=== PATIENT | male | born 1945 ===

== ENCOUNTER 2024-04-13 05:06 | Observation (INO) ==
--- NOTE | 2024-03-07 15:58 | PAT Medication Instructions ---
Medication Instructions Date of Service March 07, 2024 Home Medications aspirin 81 mg tablet,delayed release 81 mg PO QAM atorvastatin 10 mg tablet 10 mg PO HS diclofenac sodium 75 mg tablet,delayed release 75 mg PO BID hydrochlorothiazide 12.5 mg tablet 12.5 mg PO QAM losartan 100 mg tablet 100 mg PO QAM montelukast 10 mg tablet 10 mg PO PM multivitamin with minerals-folic acid 80 mcg chewable tablet (Centrum Adult 50 Plus) 1 tab PO QAM tamsulosin 0.4 mg capsule 0.4 mg PO QAM MEDICATION INSTRUCTIONS: ASK your surgeon for instructions diclofenac sodium 75 mg tablet,delayed release 75 mg PO BID ASK your prescriber and surgeon aspirin 81 mg tablet,delayed release 81 mg PO QAM DO NOT take the morning of surgery hydrochlorothiazide 12.5 mg tablet 12.5 mg PO QAM losartan 100 mg tablet 100 mg PO QAM multivitamin with minerals-folic acid 80 mcg chewable tablet (Centrum Adult 50 Plus) 1 tab PO QAM Take morning of surgery With a small sip of water, OTHERWISE NOTHING TO EAT OR DRINK AFTER MIDNIGHT: tamsulosin 0.4 mg capsule 0.4 mg PO QAM Take evening before surgery montelukast 10 mg tablet 10 mg PO PM atorvastatin 10 mg tablet 10 mg PO HS Other Notes If you have any questions please call us at [phone] or [phone] or [phone] or [phone]
--- NOTE | 2024-03-16 08:42 | Anesthesiology Consultation ---
Date of Service March 16, 2024 Assessment & Plan (1) Encounter for pre-operative examination: - Infectious disease screening: Per assessment on 03/16/24: No known recent infectious disease contacts or current infectious disease symptoms. - Outpatient joint assessment: Pt currently scheduled for inpatient pathway. If surgeon requests review for outpatient joint pathway, patient is not recommended candidate for outpatient joint program from anesthesia standpoint based on available information. - PCP visit (12/14/23): Continue current meds. BP stable. Referred to orthopedic surgery for hip pain/osteoarthritis. Impaired fasting glucose- diet changes recommended. - Preop EKG: Notes SB at 46bpm + cannot r/o anterior infarct. Note written to PCP regarding upcoming surgery/preop EKG- Awaiting response (Casey Jasso PAC). Patient otherwise acceptable risk for surgery. Chart Review Chart Review: Acceptable Risk for Surgery and Patient seen in Pre Admission Testing Teaching & Discussion Pre-Anesthesia Teaching/Discussion Notes: Instructed NPO after midnight before surgery,except medications with 15 cc of water. Medication instructions provided according to the PAT guidelines. History Surgery Operation Date: 04/13/24 10:40 Proposed Procedures p Right Anterior Total Hip Arthroplasty - Erik Garcia, DO Height/Weight Height: 5 ft 8.5 in Weight: 99 kg Allergies Allergy/AdvReac Type Severity Reaction Status Date / Time hydrocodone AdvReac Intermediate Gastrointestinal Verified 03/02/24 07:34 Upset Medications Home Medications Medication Instructions Recorded Confirmed Last Taken aspirin 81 mg tablet,delayed 81 mg PO QAM 03/02/24 03/02/24 Unknown release atorvastatin 10 mg tablet 10 mg PO HS 03/02/24 03/02/24 Unknown diclofenac sodium 75 mg 75 mg PO BID 03/02/24 03/02/24 Unknown tablet,delayed release hydrochlorothiazide 12.5 mg tablet 12.5 mg PO QAM 03/02/24 03/02/24 Unknown losartan 100 mg tablet 100 mg PO QAM 03/02/24 03/02/24 Unknown montelukast 10 mg tablet 10 mg PO PM 03/02/24 03/02/24 Unknown multivitamin with minerals-folic 1 tab PO QAM 03/02/24 03/02/24 Unknown acid 80 mcg chewable tablet (Centrum Adult 50 Plus) tamsulosin 0.4 mg capsule 0.4 mg PO QAM 03/02/24 03/02/24 Unknown Past Medical History Medical History Arthritis BPH (benign prostatic hyperplasia) CAD (coronary artery disease) stents x2 (2005) Hx of hepatitis Unsure of type, 1970s Hyperlipidemia Hypertension Exercise / Class Metabolic Activity III < 4 Walking/Shop/Light housework Past Surgical History Surgical History History of appendectomy History of cardiac cath 2005 History of carpal tunnel release R/L History of cataract surgery R/L History of colonoscopy History of heart artery stent x2 (2005) History of tonsillectomy History of tooth extraction History of total knee replacement R/L Past Anesthesia History No Hx of Anesthesia Complications and No Family Hx of Anesthesia Complications History of PONV No Hx of PONV and No Hx of Motion Sickness Social History Smoking Status: Former smoker Do You Dip or Chew Tobacco: No Smoking End Date: Quit 30 years ago Hx Alcohol Use: No Hx Substance Use: No substance use type: does not use Review of Systems Patient denies chest pain, shortness of breath, fever, chills, cough, wheezing, palpitations. Physical Exam Vital Signs BP 134/67 P 54 TEMP 97.8 SP02 96%RA RESP 18 Physical Mildly decreased cervical extension range of motion. Full TMJ range of motion. TMD 3 finger breaths Mallampati Score 3 Dentition: upper/lower full dentures Lungs: clear throughout to auscultation Cardiac: regular rate and rhythm, distant heart sounds Spine: normal Carotid arteries: negative bruit Extremities: no LE edema Lab Results Anesthesia Preop Results Results Anesthesia Widget: WBC 8.53 K/ul (4.8-10.8) 03/16/24 Hgb 12.6 g/dl (14.0-18.0) L 03/16/24 Hct 38.9 % (42.0-52.0) L 03/16/24 Plt 202 K/uL (130-400) 03/16/24 Na 137 mmol/L (136-145) 03/16/24 K 4.3 mmol/L (3.5-5.1) 03/16/24 Cl 105 mmol/L (98-107) 03/16/24 CO2 29 mmol/L (21-32) 03/16/24 BUN 21 mg/dl (6-23) 03/16/24 Creat 1.07 mg/dl (0.6-1.4) 03/16/24 Glucose Level 104 mg/dl (70-99(Fasting)) H 03/16/24 PT 10.3 Seconds (9.0-12.0) 03/16/24 PTT 29 Seconds (21-31) 03/16/24 INR 0.9 (0.9-1.1) 03/16/24 Blood Type O Positive 03/16/24 Antibody Screen NEGATIVE 03/16/24 Testing Electrocardiogram Date: 03/16/24 SB at 46bpm. Cannot r/o anterior infarct, age undetermined. Chest X-Ray Date: 03/16/24 FINDINGS: No lines and tubes are seen. Cardiomegaly is noted. The aortic arch is calcified. The lungs are clear. No evidence of pleural effusion or pneumothorax. IMPRESSION: No acute chest disease. Echocardiogram Date: 11/08/22 EF 60-65%. No RWMA. Severe LAD. No pericardial effusion. Grade I DD. No LVH. Physiologic TR.
--- NOTE | 2024-04-12 11:41 | History & Physical Report ---
Date of Service April 12, 2024 Assessment & Plan (1) Arthritis of right hip: We will proceed with a right anterior total of arthroplasty. Postoperatively he will be started on aspirin for DVT prophylaxis and kept overnight in the hospital for postop medical management. He will have the hospital set up home h ealth before discharge. History of Present Illness Chief Complaint: Osteoarthritis of the right hip. Primary Care Provider: NO PCP Seven is a pleasant 78-year-old male who has been dealing with chronic increasing right hip and groin pain. He is seeing another provider. X-rays and clinical examination have been diagnostic for advanced arthritis of the right hip. He has trouble getting in and out of a car. He has trouble walking long distances. After failed conservative treatment, he has elected proceed with a right anterior total of arthroplasty. Allergies Allergy/AdvReac Type Severity Reaction Status Date / Time hydrocodone AdvReac Intermediate Gastrointestinal Verified 03/02/24 07:34 Upset Home Medications Medication Instructions Recorded Confirmed Type aspirin 81 mg tablet,delayed 81 mg PO QAM 03/02/24 03/02/24 History release atorvastatin 10 mg tablet 10 mg PO HS 03/02/24 03/02/24 History diclofenac sodium 75 mg 75 mg PO BID 03/02/24 03/02/24 History tablet,delayed release hydrochlorothiazide 12.5 mg tablet 12.5 mg PO QAM 03/02/24 03/02/24 History losartan 100 mg tablet 100 mg PO QAM 03/02/24 03/02/24 History montelukast 10 mg tablet 10 mg PO PM 03/02/24 03/02/24 History multivitamin with minerals-folic 1 tab PO QAM 03/02/24 03/02/24 History acid 80 mcg chewable tablet (Centrum Adult 50 Plus) tamsulosin 0.4 mg capsule 0.4 mg PO QAM 03/02/24 03/02/24 History Past Med/Surg History Problem List Encounter for pre-operative examination Arthritis of right hip Medical History CAD (coronary artery disease) stents x2 (2005) Hx of hepatitis Unsure of type, 1970s BPH (benign prostatic hyperplasia) Hyperlipidemia Hypertension Arthritis Surgical History History of carpal tunnel release R/L History of total knee replacement R/L History of colonoscopy History of appendectomy History of tooth extraction History of tonsillectomy History of cataract surgery R/L History of heart artery stent x2 (2005) History of cardiac cath 2006 Social History Smoking Status: Former smoker Smoking End Date: Quit 30 years ago; Second Hand Exposure: No; Do You Dip or Chew Tobacco: No; Tobacco Cessation Education Requested by Patient: No Hx Alcohol Use: No Hx Substance Use: No Preferred Language: Belarusian Communication Ability: Effective Boot Maker Required: No Beliefs That Will Affect Care: None Current Living Situation: Spouse Other Information That Helps Us Care for You: No Feels Safe at Home: Yes Safety Concerns: Feels Safe At This Time Assistive Devices: Cane, Denture - Upper, Denture - Lower and Glasses Review of Systems All systems reviewed & are unremarkable except as noted in HPI & below. Physical Exam On physical examination the right hip, he has decreased range of motion. He has pain with forced internal/external rotation. Most of his pain is located in the groin.. Constitutional WD/WN, vitals as above Eyes PERRL, conjunctivae normal, anicteric sclerae ENMT external ear and nose normal, oropharynx normal Neck trachea midline, no thyromegaly Respiratory normal respiratory effort Cardiovascular RRR, no murmur, no edema Gastrointestinal (Abdomen) normal bowel sounds, soft, nontender, no hepatosplenomegaly Psychiatric A+Ox3, euthymic affect Results & Data Results & Data Laboratory Results . Diagnostic Findings X-rays of the right hip and pelvis show advanced osteoarthritis with joint space narrowing, osteophyte formation, and [id number] tubulation. PG Care Time/CCT Total # of Minutes Spent Total Time Spent with Patient: Total time spent is greater than 50% in coordination of care (as documented) at patient's floor/unit and/or counseling patient: Coding Level of Care Code None Diagnoses Arthritis of right hip M16.11
[2024-04-13] MEDS: LR 500ML BOLUS, THEN 15ML/HR IV SCH (05:55)
[2024-04-13] MEDS: LR 60ML/HR IV SCH (05:58)
[2024-04-13] MEDS: FAMOTIDINE 20 MG TAB PO SCH (06:02)
[2024-04-13] MEDS: ACETAMINOPHEN 500 MG TAB PO SCH ×2 (06:02→15:10)
[2024-04-13] MEDS: GABAPENTIN 300 MG CAP PO SCH (06:02)
[2024-04-13] MEDS: dexAMETHasone**PF** 10 MG/ML VIAL IV SCH (06:02)
[2024-04-13] MEDS ORDERED: BUPIVACAINE 0.5 % 5 MG/1 ML PF 10ML VIAL ONE (06:16)
--- OUTSIDE RECORDS SUMMARY | 2024-04-13 06:19 | External Medical Summary | Continuity of Care Document ---
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 Name Role Phone Cardiology - Cardiovascular Disease Care Team In formation Credit Associate Unavailable Problems Active Problems Provider Date Morbid obesity Casey Jasso PA-C Onset: 0 03/30/2019 Body mass index 30+ - obesity Casey Jasso PA-C Onset: 03/30/2019 Essential hypertension Casey Jasso PA-C O nset: 06/10/2017 Mixed hyperlipidemia Casey Jasso PA-C Ons et: 06/10/2017 Obesity Casey Jasso PA-C Onset: 0 06/10/2017 Localized, primary osteoarthritis Casey gtz PA-C Onset: 06/10/2017 Impaired fasting glycemia CASTILLO Velazquez Onset: 01/02/2018 Acquired trigger finger Casey Jasso PA-C Onset: 01/02/2018 Adult health examination Casey Jasso PA-C Onset: 04/03/2018 Dermatophytosis Casey Jasso PA-C Onset: 0 04/03/2018 Atopic dermatitis Casey Jasso PA-C Onset: 07/04/2018 Syncope Onset: 9 Note: Document: 10/09/18 - e [facility] Discharge Summary Sprain of medial collateral ligament of knee Casey Jasso PA-C Onset: 10/12/2018 Dermatophytosis of the body Johnie Velazquez Onset: 05/15/2019 Cellulitis of forearm Casey Jasso PA-C On set: 05/15/2019 Acute maxillary sinusitis CASTILLO Velazquez Onset: 06/08/2019 Acute bronchitis Casey Jasso PA-C Onset: 06/28/2019 Candidiasis of mouth Casey Jasso PA-C Ons et: 07/10/2019 Headache Casey Jasso PA-C Onset: 1 10/14/2018 Dyspnea Casey Jasso PA-C Onset: 0 10/08/2019 Carotid artery occlusion Casey Jasso PA-C Onset: 10/08/2019 Osteoarthritis of multiple joints Casey gtz PA-C Onset: 10/08/2019 Tinea corporis Casey Jasso PA-C Onset: 0 03/25/2020 Social History Type Date Description Comments Sex Male Cigarette Use 12/14/2023 Quit - Age 38 Tobacco Use Reviewed: 12/14/23 Never Smoked Cigars Tobacco Use Reviewed: 12/14/23 Never Smoked A Pipe Smoking Status Reviewed: 04/03/24 Never Smoked A Pipe Smokeless Tobacco 12/14/2023 Never Used Smokeless To bacco ETOH Use Occasionally consumes alcoho l Recreational Drug Use Denies Drug Use Allergies and adverse reactions Active Allergies Criticality Reaction | Severity Comments Date Acetaminophen / Hydrocodone Unable to assess criticality 06/10/2017 Medications Active Medications SIG Qnty Indications Order ing Provider Date Zdjnet4mt TBPK use as directed 21units Chaim Fernandez MD 04/03/2024 - 04/10/2024 Gpivibas133731Efkd/GM Cream apply topically to affected area 2 times a day. 90gm Shirley Arthur MD 04/03/2024 Btzfejdmomd001kg Tablets One daily x 7 days 7tabs Shirley Arthur MD 04/03/2024 Ondansetron HCL4mg Tablets take 1 tablet by mouth every 6 hours as needed for nausea 30tabs Shirley Arthur MD 03/20/2024 Tramadol CEY65mx Tablets 1 by mouth three times a day as needed pain 60tabs Shirley Arthur MD 11/25/2023 Montelukast Sdpjmv73hb Tablets take 1 tablet by mouth every night 90tabs Shirley Arthur MD 02/03/2023 Tamsulosin HCL0.4mg Capsules 1 by mouth every day 90caps Shirley Arthur MD 08/12/[address] Take 1 Tablet Twice A Day as Needed For Joint Pain 180tabs M15.9 Shirley Arthur MD 10/09/2020 Cetirizine NOA46yi Tablets 1 by mouth every day as needed 90tabs Shirley Arthur MD 10/09/2020 Losartan Jhwuumofw058rx Tablets Take 1 Tablet Daily 90tabs I10 Shirley Arthur MD 10/22/2019 Rykypdbmqwrpvlwuwyw55.5mg Tablets Take 1 Tablet Daily 90tabs I10 Shirley Arthur MD 10/22/2019 Terazosin GKL76ej Capsules once daily N40.1 Kt Arrieta JR, MD 02/08/2019 Atorvastatin Tsfnvsx33gy Tablets Take 1 Tablet Daily 90tabs Shirley Arthur MD [facility] [place] MultigummiesChewtabs John Cunningham MD Luis Daniel Low Wbth74vx Tablets DR 1 by mouth every day John Cunningham MD History Medications Kdiyi940jo Tablets 1 by mouth twice a day x 7 days 14tabs Shirley Arthur MD 03/20/2024 - 03/27/2024 Drdissxitw33jl Tablets Take Two Tablets By Mouth For 5 Days Then Take One Tablet By Mouth For 5 Days 15tabs Shirley Arthur MD 11/14/2023 - 03/20/2024 Medications Administered in Office Medication SIG Qnty Indications Ordering Provider Date Injection Kenalog 10 MG NDC [id number] Johnie Velazquez-Kishor 11/14/2023 Injection Kenalog 10 MG NDC [id number] Johnie Velazquez-Kishor 09/26/2023 Injection Dexamethasone Sodium Phosphate, 1 MGInjection Casey Jasso PA-C 09/12 Injection Dexamethasone Sodium Phosphate, 1 MGInjection Casey Jasso PA-C 01/2023 Injection Dexamethasone Sodium Phosphate, 1 MGInjection Casey D. Lazorka, PA-C 03/2023 Injection Kenalog 10 MG NDC [id number] Caseymax Jasso, P A-C 02/03/2023 Injection Dexamethasone Sodium Phosphate, 1 MGInjection Casey D. Lazorka, PA-C 01/11 Injection Dexamethasone Sodium Phosphate, 1 MGInjection Casey Faust Lazorka, PA-C 12/12 Injection Dexamethasone Sodium Phosphate, 1 MGInjection Casey Govind Lazorka, PA-C 02/2023 Injection Dexamethasone Sodium Phosphate, 1 MGInjection Casey D. Lazorka, PA-C 11/10 Injection Dexamethasone Sodium Phosphate, 1 MGInjection Casey Faust Lazorka, PA-C 04/2022 Injection Kenalog 10 MG NDC [id number] Casey Jasso, P A-C 05/14/2021 Immunizations CPT Code Status Date Vaccine Lot # [id number] Given 06/09/2023 Influenza Vaccine High Do se 0.5ML Age 65 & > [id number] Given 06/09/2023 Tdap (Tetanus, diphtheria & acel. pertussis) Adacel or Boostrix [id number] 85814 Given 08/24/2022 Moderna Sars-Co v-2 (Covid-19) Vaccine, BiValent Booster 12y+ [id number] 18329 Given 01/05/2022 Moderna Covid-1 9 Vaccine 50mcg Booster-EMR Doc Only [id number] Given 08/25/2021 Influenza Vaccine High Do se 0.5ML Age 65 & > [id number] Given 07/14/2021 Moderna Covid-1 9 Vaccine 50mcg Booster-EMR Doc Only [id number] 24609 Given 11/14/2020 Moderna Sars-Co v-2 (Cov-19) vacc,100 mcg/ 0.5 mL 12Y+EMR Doc Only [id number] 07685 Given 10/17/2020 Moderna Sars-Co v-2 (Cov-19) vacc,100 mcg/ 0.5 mL 12Y+EMR Doc Only [id number] 69598 Given 06/09/2020 Influenza Vaccine High Do se 0.5ML Age 65 & > [id number] 52760 Given 10/08/2019 Pneumococcal Vaccine/Pneu movax 23 [id number] 81033 Given 06/20/2018 Influenza Virus Vaccine, Quadrivalent (Cciiv4), Derived From Cell U-FLU Given 06/20/2018 Influenza,Unspecified 32930 Given 04/03/2018 Pneumococcal Conjugate-Pr evnar 13 [id number] 08364 Given 09/03/2015 Pneumococcal Conjugate-Pr evnar 13 83258 Given 08/06/2015 Tdap (Tetanus, diphtheria & acel. pertussis) Adacel or Boostrix U-FLU Given 06/10/2015 Influenza,Unspecified U-FLU Given 05/30/2014 Influenza,Unspecified U-FLU Given 08/22/2010 Influenza,Unspecified 03806 Refused 05/24/2022 Shingrix 51155 Refused 06/09/2020 Shingrix 42828 Refused 10/08/2019 Influenza Virus Vaccine, Quadrivalent, Im Use [id number] Refused 11/07/2018 Shingrix Vital Signs Date Vital Result Comment 04/03/2024 11:01am BP Systolic 130 mmHg BP Diastolic 78 mmHg Body Temperature 97.7 F Heart Rate 40 /min Respiratory Rate 20 /min Weight 217.38 lb Weight 98.601 kg Height 68.5 inches 5'8.50" BMI (Body Mass Index) 32.6 kg/m2 O2 % BldC Oximetry 98 % [place] Body Weight 154 lb 03/20/2024 11:07am BP Systolic 134 mmHg large cuf f BP Diastolic 64 mmHg large cuff Body Temperature 97.6 F Heart Rate 59 /min Weight 219.38 lb Weight 99.508 kg O2 % BldC Oximetry 95 % Procedures Date Code Description Status 03/20/2024 G2211 Continuation of care e/m vis it add on Completed 12/27/2023 14215 Therapeutic Procedure Group Completed 12/27/2023 56520 Manual Balance Wheel Hand Filer 1/> Area 15 Min Each Region Completed 12/27/2023 36717 Therapy Proc, Neuromuscular Reeducation Of Movement Completed 12/27/2023 59609 Therapy Proc 1/> Area 15Min Ea Completed 12/22/2023 84004 Manual Balance Wheel Hand Filer 1/> Area 15 Min Each Region Completed 12/22/2023 04110 Therapy Proc, Neuromuscular Reeducation Of Movement Completed 12/22/2023 43201 Therapy Proc 1/> Area 15Min Ea Completed 12/20/2023 49128 Therapy Proc, Neuromuscular Reeducation Of Movement Completed 12/20/2023 89036 Therapy Proc 1/> Area 15Min Ea Completed 12/20/2023 44402 Manual Balance Wheel Hand Filer 1/> Area 15 Min Each Region Completed 12/20/2023 79016 Therapeutic Procedure Group Completed 12/14/2023 3078F PVRP Diastolic BP <80 mmHg C ompleted 12/14/2023 3074F PVRP Systolic BP <130 mmHg C ompleted 12/14/2023 1101F PT SCR Future Fall Risk, No Fall Or 1 W/Out Injury Completed 12/13/2023 83746 Therapeutic Procedure Group Completed 12/13/2023 80295 Manual Balance Wheel Hand Filer 1/> Area 15 Min Each Region Completed 12/13/2023 22202 Therapy Proc, Neuromuscular Reeducation Of Movement Completed 12/13/2023 87051 Therapy Proc 1/> Area 15Min Ea Completed 12/06/2023 37920 Therapeutic Procedure Group Completed 12/06/2023 17889 Therapy Proc 1/> Area 15Min Ea Completed 12/06/2023 15225 Manual Balance Wheel Hand Filer 1/> Area 15 Min Each Region Completed 12/06/2023 06970 Therapy Proc, Neuromuscular Reeducation Of Movement Completed 11/29/2023 82502 Manual Balance Wheel Hand Filer 1/> Area 15 Min Each Region Completed 11/29/2023 52614 Therapy Proc, Neuromuscular Reeducation Of Movement Completed 11/29/2023 39476 Therapy Proc 1/> Area 15Min Ea Completed 11/24/2023 16781 Manual Balance Wheel Hand Filer 1/> Area 15 Min Each Region Completed 11/24/2023 96902 Therapy Proc, Neuromuscular Reeducation Of Movement Completed 11/24/2023 51120 Therapy Proc 1/> Area 15Min Ea Completed 11/22/2023 16894 Physical Therapy Evaluation Low Complexity Completed 11/22/2023 21656 Therapy Proc 1/> Area 15Min Ea Completed 11/22/2023 67524 Manual Balance Wheel Hand Filer 1/> Area 15 Min Each Region Completed 11/14/2023 J3301 Injection Kenalog 10 MG NDC [id number] Completed 11/14/2023 37737 Inject/Drain Arthrocentesis Major Joint/Bursa Completed 10/11/2023 3078F PVRP Diastolic BP <80 mmHg C ompleted 10/11/2023 3074F PVRP Systolic BP <130 mmHg C ompleted 10/11/2023 1101F PT SCR Future Fall Risk, No Fall Or 1 W/Out Injury Completed 03/20/2014 [id number] Colonoscopy Completed Medical Devices Description No Information Available Encounters Type Date Location Provider Dx Diagnosis Office Visit 04/03/2024 11:00a Talia Jasso PA-C Z01.818 Encounter for other preprocedural examination Office Visit 03/20/2024 11:15a Talia Jasso PA-C K52.839 Microscopic colitis, unspecified E86.0 Dehydration Office Visit 12/14/2023 11:15a Talia Jasso PA-C Z00.01 Encounter for general adult medical exam w abnormal findings I10 Essential (primary) hypertension E78.2 Mixed hyperlipidemia M16.11 Unilateral primary o steoarthritis, right hip R73.01 Impaired fasting glu cose Office Visit 11/14/2023 10:00a Talia Jasso PA-C M16.11 Unilateral primary osteoarthritis, right hip M70.61 Trochanteric bursiti s, right hip Office Visit 10/11/2023 9:00a Talia cornell PA-C Z00.01 Encounter for general adult medical exam w abnormal findings I10 Essential (primary) hypertension E78.2 Mixed hyperlipidemia R73.01 Impaired fasting glu cose N40.1 Benign prostatic hyp erplasia with lower urinary tract symp Z68.32 Body mass index [BMI ] 32.0-32.9, adult Assessments Date Code Description Provider 04/03/2024 Z01.818 Encounter for ot her preprocedural examination Casey Jasso PA-C 03/20/2024 K52.839 Microscopic colitis, unspeci fied Casey Jasso PA-C 03/20/2024 E86.0 Dehydration Casey reina PA-C 12/27/2023 M25.551 Pain in right hip Gaivn Arnett, DPT 12/27/2023 M54.50 Low back pain, unspecified A lexander Snyder, DPT 12/22/2023 M25.551 Pain in right hip Gavin Snyder, DPT 12/22/2023 M54.50 Low back pain, unspecified A lexander Snyder, DPT 12/20/2023 M25.551 Pain in right hip Gavin Snyder, DPT 12/20/2023 M54.50 Low back pain, unspecified A lexander Snyder, DPT 12/14/2023 Z00.01 Encounter for [facility] adult medical examination with abnormal findings Casey Jasso PA-C 12/14/2023 I10 Essential (primary) hyperten adam Casey Jasso PA-C 12/14/2023 E78.2 Mixed hyperlipidemia Casey Jasso PA-C 12/14/2023 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, right hip Casey Jasso PA-C 12/14/2023 R73.01 Impaired fasting glucose CASTILLO PughC 12/13/2023 M25.551 Pain in right hip Gavin Snyder, DPT 12/13/2023 M54.50 Low back pain, unspecified A lexander Snyder, DPT 12/06/2023 M25.551 Pain in right hip Gavin Snyder, DPT 12/06/2023 M54.50 Low back pain, unspecified A lexander Snyder, DPT 11/29/2023 M25.551 Pain in right hip Gavin Snyder, DPT 11/29/2023 M54.50 Low back pain, unspecified A lexander Snyder, DPT 11/24/2023 M25.551 Pain in right hip Gavin Snyder, DPT 11/24/2023 M54.50 Low back pain, unspecified A lexander Snyder, DPT 11/22/2023 M25.551 Pain in right hip Gavin Snyder, DPT 11/22/2023 M54.50 Low back pain, unspecified A lexander Snyder, DPT 11/14/2023 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, right hip Casey Jasso PA-C 11/14/2023 M70.61 Trochanteric bursitis, right hip Casey Jasso PA-C 10/11/2023 Z00.01 [facility] for [facility] [place] [facility] with abnormal findings Casey Jasso PA-C 10/11/2023 I10 Essential (primary) hyperten adam Casey Jasso PA-C 10/11/2023 E78.2 Mixed hyperlipidemia Casey Jasso PA-C 10/11/2023 R73.01 Impaired fasting glucose Vipul Jasso PA-C 10/11/2023 N40.1 Benign prostatic hyperplasia with lower urinary tract symptoms Casey Jasso PA-C 10/11/2023 Z68.32 Body mass index [BMI] 32.0-3 2.9, adult Casey Jasso PA-C Plan of Treatment Future Appointment(s):* 04/10/2024 8:00 am - [facility] - [facility] * 04/17/2024 9:00 am - Casey Jasso PA-C at [facility] 04/03/2024 - Casey Jasso PA-C* Z01.818 Encounter for other preprocedural examination* Comments:* Patient is aware to hold all NSAIDs and other medications as they advised prior to surgery Labresults reviewed and chest x- ray reviewed EKG repeated today showing 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 * Follow up:* Follow-up as scheduled Please fax today's office note to Dr. Garcia clearing patient for surgery and fax EKG that we completed here in our office today Functional Status Description No Information Available Mental Status Description No Information Available Referrals Refer to Dr Reason for Referral Status Appt [facility] Patient Declined Gavin Arnett, SUKHDEV [phone] [place] [phone]
--- OUTSIDE RECORDS SUMMARY | 2024-04-13 06:19 | External Medical Summary | Continuity of Care Document ---
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 Unavailable Problems Active Problems Provider Date Morbid [...] Onset: 9 Note: Document: 10/09/18 - e [facility] Discharge Summary Sprain of medial collateral ligament of knee Casey Jasso PA-C Onset: 10/12/2018 Dermatophytosis of the body Johnie Velazquez Onset: 05/15/2019 Cellulitis of forearm CASTILLO VelazqeuzC On set: 05/15/2019 Acute maxillary sinusitis CASTILLO [...] Social History Type Date Description Comments Sex Unknown Cigarette Use 12/14/2023 Quit - Age 38 Tobacco Use Reviewed: 12/14/23 Never Smoked Cigars Tobacco Use Reviewed: 12/14/23 Never Smoked A Pipe Smoking Status Reviewed: 03/20/24 Never Smoked A Pipe Smokeless Tobacco 12/14/2023 Never Used Smokeless To bacco ETOH Use Occasionally consumes alcoho l Recreational Drug Use Denies Drug Use Allergies and adverse reactions Active Allergies Criticality Reaction | Severity Comments Date Acetaminophen / Hydrocodone Unable to assess criticality 06/10/2017 Medications Active Medications SIG Qnty Indications Order ing Provider Date Gtsst259rg Tablets 1 by mouth twice a day x 7 days 14tabs Shirley Arthur MD 03/20/2024 - 03/27/2024 Ondansetron HCL4mg Tablets take 1 tablet by mouth every 6 hours as needed for nausea 30tabs Shirley Arthur MD 03/20/2024 Tramadol CHI77by Tablets 1 by mouth three times a day as needed pain 60tabs Shirley Arthur MD 11/25/2023 Montelukast Ntxzrp90qg Tablets take 1 tablet by mouth every night 90tabs Shirley Arthur MD 02/03/2023 Tamsulosin HCL0.4mg Capsules 1 by mouth every day 90caps Shirley Arthur MD 08/12/2022 Bvzbodiaqzl078fu Capsules take 1 capsule 4 times daily as needed for cough 60caps Shirley Arthur MD 10/20/2021 Cetirizine XPB44th Tablets 1 by mouth every day as needed 90tabs Shirley Arthur MD 10/09/[address] Take 1 Tablet Twice A Day as Needed For Joint Pain 180tabs M15.9 Shirley Arthur MD 10/09/2020 Qcbakdekbocivtsiwxh62.5mg Tablets Take 1 Tablet Daily 90tabs I10 Shirley Arthur MD 10/22/2019 Losartan Svbiommzd368xz Tablets Take 1 Tablet Daily 90tabs I10 Shirley Arthur MD 10/22/2019 Vitamin C W/Vitamin V269-253gp-Eeff Capsules 1 by mouth every day Kt Arrieta JR, MD 07/10/2019 Terazosin TPP86hd Capsules once daily N40.1 Kt Arrieta JR, MD 02/08/2019 Ashatddek50wd Tablets take 1 tablet every day with food 90tabs M17.0 Alex Macedo MD 11/07/2018 Fish Oil Dioceweomyx6302pr Capsules 1 by mouth every day 30caps John Cunningham MD 06/10/2017 Atorvastatin Inleuqg02nt Tablets Take 1 Tablet Daily 90tabs Shirley Arthur MD Centrum MultigummiesChewtabs John Cunningham MD Fiber Select GummiesChewtabs 1 gummies daily with glass of water John Cunningham MD Luis Daniel Low Pimf82mx Tablets DR 1 by mouth every day John Cunningham MD History Medications Slhbfkvjdk00ya Tablets Take Two Tablets By Mouth For 5 Days Then Take One Tablet By Mouth For 5 Days 15tabs Shirley Arthur MD 11/14/2023 - 03/20/2024 Medications Administered in Office Medication SIG Qnty Indications Ordering Provider Date Injection Kenalog 10 MG NDC [id number] Johnie Velazquez A-C 11/14/2023 Injection Kenalog 10 MG NDC [id number] Johnie Velazquez A-C 09/26/2023 Injection Dexamethasone Sodium Phosphate, 1 MGInjection Casey Jasso, PA-C 09/12 Injection Dexamethasone Sodium Phosphate, 1 MGInjection Casey D. Lazorka, PA-C 01/2023 Injection Dexamethasone Sodium Phosphate, 1 MGInjection Casey D. Lazorka, PA-C 03/2023 Injection Kenalog 10 MG ND [id number] Casey D. Lazjaia, P A-C 02/03/2023 Injection Dexamethasone Sodium Phosphate, 1 MGInjection Casey D. Lazorka, PA-C 01/11 Injection Dexamethasone Sodium Phosphate, 1 MGInjection Casey D. Lazorka, PA-C 12/12 Injection Dexamethasone Sodium Phosphate, 1 MGInjection Casey D. Lazorka, PA-C 02/2023 Injection Dexamethasone Sodium Phosphate, 1 MGInjection Casey Becky. Lazorka, PA-C 11/10 Injection Dexamethasone Sodium Phosphate, 1 MGInjection Casey Becky. Lazorka, PA-C 04/2022 Injection Kenalog 10 MG [facility] [id number] Casey Becky. Lazjaia, P A-C 05/14/2021 Immunizations CPT Code Status Date Vaccine Lot # [id number] Given 06/09/2023 Influenza Vaccine High Do se 0.5ML Age 65 & > [id number] 08698 Given 06/09/2023 Tdap (Tetanus, diphtheria & acel. pertussis) Adacel or Boostrix [id number] Given 08/24/2022 Moderna Sars-Co v-2 (Covid-19) Vaccine, BiValent Booster 12y+ [id number] 35262 Given 01/05/2022 Moderna Covid-1 9 Vaccine 50mcg Booster-EMR Doc Only [id number] Given 08/25/2021 Influenza Vaccine High Do se 0.5ML Age 65 & > [id number] Given 07/14/2021 Moderna Covid-1 9 Vaccine 50mcg Booster-EMR Doc Only [id number] 46241 Given 11/14/2020 Moderna Sars-Co v-2 (Cov-19) vacc,100 mcg/ 0.5 mL 12Y+EMR Doc Only [id number] 48608 Given 10/17/2020 Moderna Sars-Co v-2 (Cov-19) vacc,100 mcg/ 0.5 mL 12Y+EMR Doc Only [id number] 51012 Given 06/09/2020 Influenza Vaccine High Do se 0.5ML Age 65 & > [id number] 47911 Given 10/08/2019 Pneumococcal Vaccine/Pneu movax 23 [id number] 36582 Given 06/20/2018 Influenza Virus Vaccine, Quadrivalent (Cciiv4), Derived From Cell U-FLU Given 06/20/2018 Influenza,Unspecified 32922 Given 04/03/2018 Pneumococcal Conjugate-Pr evnar 13 [id number] 45021 Given 09/03/2015 Pneumococcal Conjugate-Pr evnar 13 [id number] Given 08/06/2015 Tdap (Tetanus, diphtheria & acel. pertussis) Adacel or Boostrix U-FLU Given 06/10/2015 Influenza,Unspecified U-FLU Given 05/30/2014 Influenza,Unspecified U-FLU Given 08/22/2010 Influenza,Unspecified [id number] Refused 05/24/2022 Shingrix [id number] Refused 06/09/2020 Shingrix [id number] Refused 10/08/2019 Influenza Virus Vaccine, Quadrivalent, Im Use [id number] Refused 11/07/2018 Shingrix Vital Signs Date Vital Result Comment 03/20/2024 11:07am BP Systolic 134 mmHg large cuf f BP Diastolic 64 mmHg large cuff Body Temperature 97.6 F Heart Rate 59 /min Weight 219.38 lb Weight 99.508 kg O2 % BldC Oximetry 95 % 12/14/2023 10:38am BP Systolic 106 mmHg BP Diastolic 58 mmHg Body Temperature 97.6 F Heart Rate 59 /min Respiratory Rate 16 /min Weight 213.50 lb Weight 96.844 kg Height 68.5 inches 5'8.50" BMI (Body Mass Index) 32.0 kg/m2 O2 % BldC Oximetry 95 % [place] Body Weight 154 lb Results Test Acquired Date Facility Test Result H/L Range N ote CBC W/Diff 10/04/2023 [facility] [address] [place], [place] [id number] [phone] WBC 7.8 10^3/M3 3.1-9.2 RBC 4.26 10^6/M3 4.00-5.80 HGB 13.8 GR/DL 12.5-17.5 HCT 41.2 % 37.5-52.5 MCV 96.5 CUMICR High 82.6-95.8 MCH 32.4 PICOGR 27.9-32.9 MCHC 33.6 % 32.6-35.4 RDW 14.5 % 11.4-14.6 PLT 224 10^3/M3 140-350 MPV 8.4 CUMICR 7.0-10.6 %Neut 72.3 % 40.0-75.0 %Lymph 18.7 % 17.0-45.0 %Richardson 6.6 % 1.0-11.0 %Eos 1.9 % 0.0-6.0 %Baso 0.5 % 0.0-2.0 #Neut 5.6 10^3/M3 1.5-8.0 #Lymph 1.5 10^3/M3 0.8-3.2 #Richardson 0.5 10^3/M3 0.0-0.8 #Eos 0.1 10^3/m3 0.0-0.4 #Baso 0.0 10^3/m3 0.0-0.2 Comp. Met 10/04/2023 [facility] [address] [place] [address] [phone] Glucose 92 mg/dL 70-110 BUN 15 mg/dL 6-25 Creatinine 0.8 mg/dL 0.7-1.3 Sodium 142 mEq/L 135-145 Potassium 4.3 mEq/L 3.5-5.0 Chloride 102 mEq/L 95-107 Co-2 32 mEq/L High 24-31 Alk Phos 37 IU/L Low 43-122 Alt(SGPT) 18 IU/L 10-40 Ast(Sgot) 14 IU/L 3-42 T.Bilirubin 0.6 mg/dL 0.1-1.3 Calcium 8.9 mg/dL 8.5-10.6 Tot.Protein 5.7 g/dL Low 5.8-8.0 Albumin 3.7 g/dL 3.0-5.2 Globulin 2.0 g/dL 2.0-3.4 GFR 99 ML/MIN/1.73SQM >60 Lipid 10/04/2023 [facility] [address] [place] [address] [phone] Cholesterol 176 mg/dL 0-200 1 Triglyceride 102 mg/dL 0-150 2 HDLD 63 mg/dL See Comment 3 Measured LDL 99 mg/dL 0-130 4 Calc VLDL 20.4 mg/dL See Comment 5 Chol/HDL 2.8 RATIO See Comment 6 Non-HDL 113 mg/dL See Comment 7 Laboratory test finding 10/04/2023 [facility] [address] [place] [address] [phone] TSH 1.38 uIU/mL 0.50-6.00 Hba1c 10/04/2023 [facility] [address] [place] [address] [phone] A1c 6.70 % High 4.70-6.50 8 Laboratory test finding 10/04/2023 [facility] [address] [place], [place] [id number] [phone] Psa2 0.8 ng/mL 0.0-4.0 Urinalysis,Cult If Indicated 10/04/2023 [facility] [address] [place], [place] [id number] [phone] RFLX Culture NO Urinalysis 10/04/2023 [facility] [address] [place] [address] [phone] Color LIGHT-YELL OW Appearance CLEAR Clear Spec.Grav. 1.012 1.005-1.025 Leukocytes NEGATIVE Negative Nitrite NEGATIVE Negative PH 7.0 6.0-7.5 Protein NEGATIVE Negative Urine Glucose NEGATIVE Negative Ketone NEGATIVE Negative Urobilinogen NORMAL E.U./DL Normal Bilirubin NEGATIVE Negative Blood NEGATIVE Negative WBC-U 0-2 /HPF 0-5/HPF RBC-U NONE SEEN /HPF 0-5/HPF Bacteria TRACE None Seen Squamous 0-2 /HPF 0-5/HPF 1 CHOLESTEROL Less than 200mg/dl Low risk 201-239 mg/dl Borderline risk Equal to or greater 240mg/dl High risk 2 TRIGLYCERIDES Less than 150mg/dl Normal 150-199mg/dl Borderline 200-499mg/dl High Greater than 500mg/dl Very High 3 HDL <40mg/dl Elevated Risk 41-59mg/dl Risk >=60mg/dl Least Risk 4 LDL <100mg/dl Optimal 100-129mg/dl Near Optimal 130-159mg/dl Borderline High 160-189mg/dl High >=190 Very High 5 VLDL Less than 30mg/dl Normal 6 CHOL/HDL <4.0 Optimal 4.0-5.0 Borderline >6.0 High Risk 7 NON-HDL 30mg/dl higher than LDL Target 8 MEAN GLUCOSE IN mg/d L/A1c% POOR CONTROL FAIR CONTROL GOOD CONTROL EXCELLENT CONTROL 360-14 210-9 180-8 120-6 330-13 150-7 90-5 300-12 270-11 240-10 Procedures Date Code Description Status 12/27/2023 87420 Manual Emergency Services Dispatcher 1/> Area 15 Min Each Region Completed 12/27/2023 08510 Therapeutic Procedure Group Completed 12/27/2023 54183 Therapy Proc 1/> Area 15Min Ea Completed 12/27/2023 96926 Therapy Proc, Neuromuscular Reeducation Of Movement Completed 12/22/2023 55848 Manual Emergency Services Dispatcher 1/> Area 15 Min Each Region Completed 12/22/2023 52277 Therapy Proc, Neuromuscular Reeducation Of Movement Completed 12/22/2023 26717 Therapy Proc 1/> Area 15Min Ea Completed 12/20/2023 99579 Therapeutic Procedure Group Completed 12/20/2023 78219 Manual Emergency Services Dispatcher 1/> Area 15 Min Each Region Completed 12/20/2023 27165 Therapy Proc, Neuromuscular Reeducation Of Movement Completed 12/20/2023 56631 Therapy Proc 1/> Area 15Min Ea Completed 12/14/2023 3078F PVRP Diastolic BP <80 mmHg C ompleted 12/14/2023 1101F PT SCR Future Fall Risk, No Fall Or 1 W/Out Injury Completed 12/14/2023 3074F PVRP Systolic BP <130 mmHg C ompleted 12/13/2023 11056 Therapeutic Procedure Group Completed 12/13/2023 27621 Manual Emergency Services Dispatcher 1/> Area 15 Min Each Region Completed 12/13/2023 37994 Therapy Proc, Neuromuscular Reeducation Of Movement Completed 12/13/2023 82304 Therapy Proc 1/> Area 15Min Ea Completed 12/06/2023 48271 Therapy Proc 1/> Area 15Min Ea Completed 12/06/2023 92865 Therapy Proc, Neuromuscular Reeducation Of Movement Completed 12/06/2023 60148 Therapeutic Procedure Group Completed 12/06/2023 41840 Manual Emergency Services Dispatcher 1/> Area 15 Min Each Region Completed 11/29/2023 57713 Manual Emergency Services Dispatcher 1/> Area 15 Min Each Region Completed 11/29/2023 06300 Therapy Proc, Neuromuscular Reeducation Of Movement Completed 11/29/2023 22981 Therapy Proc 1/> Area 15Min Ea Completed 11/24/2023 00229 Manual Emergency Services Dispatcher 1/> Area 15 Min Each Region Completed 11/24/2023 41704 Therapy Proc, Neuromuscular Reeducation Of Movement Completed 11/24/2023 95444 Therapy Proc 1/> Area 15Min Ea Completed 11/22/2023 73827 Therapy Proc 1/> Area 15Min Ea Completed 11/22/2023 11202 Manual Emergency Services Dispatcher 1/> Area 15 Min Each Region Completed 11/22/2023 83234 Physical Therapy Evaluation Low Complexity Completed 11/14/2023 J3301 Injection Kenalog 10 MG [facility] [id number] Completed 11/14/2023 70151 Inject/Drain Arthrocentesis Major Joint/Bursa Completed 10/11/2023 3078F PVRP Diastolic BP <80 mmHg C ompleted 10/11/2023 3074F PVRP Systolic BP <130 mmHg C ompleted 10/11/2023 1101F PT SCR Future Fall Risk, No Fall Or 1 W/Out Injury Completed 10/04/2023 14360 Venipuncture Routine Complet ed 09/26/2023 J3301 Injection Kenalog 10 MG [facility] [id number] Completed 09/26/2023 J1100 Injection Dexamethasone Sodi um Phosphate, 1 MG Completed 09/26/2023 54983 Inj Subcutaneous Or Intramus cular Completed 03/20/2014 [id number] Colonoscopy Completed Medical Devices Description No Information Available Encounters Type Date Location Provider Dx Diagnosis Office Visit 03/20/2024 11:15a Talia Jasso PA-C [...] Body mass index [BMI ] 32.0-32.9, adult Office Visit 09/26/2023 12:45p Talia Jasso PA-C J20.9 Acute bronchitis, unspecified Assessments Date Code Description Provider 03/20/2024 K52.839 Microscopic colitis, unspeci fied Casey Jasso PA-C 03/20/2024 E86.0 Dehydration Casey reina PA-C 12/27/2023 M25.551 Pain in right hip Gavin Arnett, DPT 12/27/2023 M54.50 Low back pain, unspecified A lexander Olmsted, DPT 12/22/2023 M25.551 Pain in right hip Gavin Olmsted, DPT 12/22/2023 M54.50 Low back pain, unspecified A lexander Olmsted, DPT 12/20/2023 M25.551 Pain in right hip Gavin Talamantesn, DPT 12/20/2023 M54.50 Low back pain, unspecified A lexander Olmsted, DPT 12/14/[address] 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, right hip Casey Jasso PA-C 12/14/2023 R73.01 Impaired fasting glucose Vipul Jasso PA-C 12/13/2023 M25.551 Pain in right hip Gavin Olmsted, DPT 12/13/2023 M54.50 Low back pain, unspecified A lexander Olmsted, DPT 12/06/2023 M25.551 Pain in right hip Gavin Olmsted, DPT 12/06/2023 M54.50 Low back pain, unspecified A lexander Olmsted, DPT 11/29/2023 M25.551 Pain in right hip Gavin Olmsted, DPT 11/29/2023 M54.50 Low back pain, unspecified A lexander Olmsted, DPT 11/24/2023 M25.551 Pain in right hip Gavin Olmsted, DPT 11/24/2023 M54.50 Low back pain, unspecified A lexander Olmsted, DPT 11/22/2023 M25.551 Pain in right hip Gavin Olmsted, DPT 11/22/2023 M54.50 Low back pain, unspecified A lexander Olmsted, DPT 11/14/2023 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 adult medical examination with abnormal findings aCsey Jasso PA-C 10/11/2023 I10 Essential (primary) hyperten adam Casey Jasso PA-C 10/11/2023 E78.2 Mixed hyperlipidemia Casey Jasso PA-C 10/11/2023 R73.01 Impaired fasting glucose Vipul Jasso PA-C 10/11/2023 N40.1 Benign prostatic hyperplasia with lower urinary tract symptoms Casey Jasso PA-C 10/11/2023 Z68.32 Body mass index [BMI] 32.0-3 2.9, adult Casey Jasso PA-C 10/04/2023 I10 Essential (primary) hyperten adam Shirley Arthur MD 10/04/2023 I10 Essential (primary) hyperten adam Lab - [facility] 10/04/2023 E78.2 Mixed hyperlipidemia Shirley Arthur MD 10/04/2023 E78.2 Mixed hyperlipidemia Lab - [place] 10/04/2023 R73.01 Impaired fasting glucose Zack Arthur MD 10/04/2023 R73.01 Impaired fasting glucose Lab - [facility] 10/04/2023 N40.1 Benign prostatic hyperplasia with lower urinary tract symptoms Shirley Arthur MD 10/04/2023 N40.1 Benign prostatic hyperplasia with lower urinary tract symptoms Lab - [facility] 09/26/2023 J20.9 Acute bronchitis, unspecifie d Casey Jasso PA-C Plan of Treatment Future Appointment(s):* 04/10/2024 8:00 am - [facility] * 04/17/2024 9:00 am - Casey Jasso PA-C at [facility] 03/20/2024 - Casey Jasso PA-C* K52.839 Microscopic colitis, unspecified* Comments:* Complete Cipro Consider imaging if or stool sample if symptoms persist [place] diet * E86.0 Dehydration* Comments:* Increase fluid intake along with electrolyte supplementation * All* New Medication:* Ondansetron HCL 4 mg - take 1 tablet by mouth every 6 hours as needed for nausea * Cipro 250 mg - 1 by mouth twice a day x 7 days Functional Status Description No Information Available Mental Status Description No Information Available Referrals Refer to Reason for Referral Status [facility]t [facility] Patient Declined Gavin Arnett, DPT Created 000 [address] [facility] [place] [phone]
--- OUTSIDE RECORDS SUMMARY | 2024-04-13 06:19 | External Medical Summary | Continuity of Care Document ---
Author Name Unknown Organization Family Practice [facility] er, Address [address] [place] [address] Phone [phone] Care Team Providers Care Manager Graphic Name Role Phone Cardiology - Cardiovascular Disease Care Team In formation Injection Mold Technician Unavailable Problems Active Problems Provider Date Morbid [...] Onset: 9 Note: Document: 10/09/18 - e [facility] Discharge Summary Sprain of medial collateral ligament [...] SIG Qnty Indications Order ing Provider Date [id number]/GM Cream apply topically to affected area 2 times a day. 90gm Shirley Arthur MD 04/03/2024 Nzuwsnjlksb457yd Tablets One daily x 7 days 7tabs Shirley Arthur MD 04/03/2024 Ondansetron HCL4mg Tablets take 1 tablet by mouth every 6 hours as needed for nausea 30tabs Shirley Arthur MD 03/20/2024 Tramadol MBE26gy Tablets 1 by mouth three times a day as needed pain 60tabs Shirley Arthur MD 11/25/2023 Montelukast Kcdkfi78lt Tablets take 1 tablet by mouth every night 90tabs Shirley Arthur MD 02/03/2023 Tamsulosin HCL0.4mg Capsules 1 by mouth every day 90caps Shirley Arthur MD 08/12/2022 Cetirizine WOM41jp Tablets 1 by mouth every day as needed 90tabs Shirley Arthur MD 10/09/[address] Take 1 Tablet Twice A Day as Needed For Joint Pain 180tabs M15.9 Shirley Arthur MD 10/09/2020 Losartan Tjijuirbs542xd Tablets Take 1 Tablet Daily 90tabs I10 Shirley Arthur MD 10/22/2019 Anaohftoyrpraermzlj64.5mg Tablets Take 1 Tablet Daily 90tabs I10 Shirley Arthur MD 10/22/2019 Terazosin ABJ10za Capsules once daily N40.1 Kt Arrieta JR, MD 02/08/2019 Atorvastatin Czvbluj46gh Tablets Take 1 Tablet Daily 90tabs Shirley Arthur MD Centrum MultigummiesChewtabs John Cunningham MD Luis Daniel Low Cyoz50xk Tablets DR 1 by mouth every day John Cunningham MD History Medications Dwopgq8bd TBPK use as directed 21units Chaim Fernandez MD 04/03/2024 - 04/10/2024 Agpzx583fh Tablets 1 by mouth twice a day x 7 days 14tabs Shirley Arthur MD 03/20/2024 - 03/27/2024 Wgafyowgoo68zt Tablets Take Two Tablets By Mouth For 5 Days Then Take One Tablet By Mouth For 5 Days 15tabs Shirley Arthur MD 11/14/2023 - 03/20/2024 Medications Administered in Office Medication SIG Qnty Indications Ordering Provider Date Injection Kenalog 10 MG NDC [id number] Johnie Velazquez-Kishor 11/14/2023 Injection Kenalog 10 MG NDC 42160385490Mtmgmsaql Johnie Velazquez-Kishor 09/26/2023 Injection Dexamethasone Sodium Phosphate, 1 MGInjection Casey Jasso PA-C 09/12 Injection Dexamethasone Sodium Phosphate, 1 MGInjection Casey Jasso PA-C 01/2023 Injection Dexamethasone Sodium Phosphate, 1 MGInjection Casey D. Lazorka, PA-C 03/2023 Injection Kenalog 10 MG NDC [id number] Casey Ansaria, P A-C 02/03/2023 Injection Dexamethasone Sodium Phosphate, 1 MGInjection Casey D. Lazorka, PA-C 01/11 Injection Dexamethasone Sodium Phosphate, 1 MGInjection Casey Faust Lazorka, PA-C 12/12 Injection Dexamethasone Sodium Phosphate, 1 MGInjection Casey Govind Lazorka, PA-C 02/2023 Injection Dexamethasone Sodium Phosphate, 1 MGInjection Casey Faust Lazorka, PA-C 11/10 Injection Dexamethasone Sodium Phosphate, 1 MGInjection Casey Faust Lazorka, PA-C 04/2022 Injection Kenalog 10 MG NDC [id number] Casey Ansaria, P A-C 05/14/2021 Immunizations CPT Code Status Date Vaccine Lot # [id number] Given 06/09/2023 Influenza Vaccine High Do se 0.5ML Age 65 & > [id number] 31138 Given 06/09/2023 Tdap (Tetanus, diphtheria & acel. pertussis) Adacel or Boostrix [id number] 76189 Given 08/24/2022 Moderna Sars-Co v-2 (Covid-19) Vaccine, BiValent Booster 12y+ [id number] 46946 Given 01/05/2022 Moderna Covid-1 9 Vaccine 50mcg Booster-EMR Doc Only 61234 Given 08/25/2021 Influenza Vaccine High Do se 0.5ML Age 65 & > 51644 Given 07/14/2021 Moderna Covid-1 9 Vaccine 50mcg Booster-EMR Doc Only [id number] 32614 Given 11/14/2020 Moderna Sars-Co v-2 (Cov-19) vacc,100 mcg/ 0.5 mL 12Y+EMR Doc Only [id number] 71267 Given 10/17/2020 Moderna Sars-Co v-2 (Cov-19) vacc,100 mcg/ 0.5 mL 12Y+EMR Doc Only [id number] 95190 Given 06/09/2020 Influenza Vaccine High Do se 0.5ML Age 65 & > [id number] 95877 Given 10/08/2019 Pneumococcal Vaccine/Pneu movax 23 [id number] 30171 Given 06/20/2018 Influenza Virus Vaccine, Quadrivalent (Cciiv4), Derived From Cell U-FLU Given 06/20/2018 Influenza,Unspecified 02553 Given 04/03/2018 Pneumococcal Conjugate-Pr evnar 13 [id number] 82072 Given 09/03/2015 Pneumococcal Conjugate-Pr evnar 13 30079 Given 08/06/2015 Tdap (Tetanus, diphtheria & acel. pertussis) Adacel or Boostrix U-FLU Given 06/10/2015 Influenza,Unspecified U-FLU Given 05/30/2014 Influenza,Unspecified U-FLU Given 08/22/2010 Influenza,Unspecified 36633 Refused 05/24/2022 Shingrix 78246 Refused 06/09/2020 Shingrix 82406 Refused 10/08/2019 Influenza Virus Vaccine, Quadrivalent, Im Use 47276 Refused 11/07/2018 Shingrix Vital Signs Date Vital Result Comment 04/03/2024 11:01am BP Systolic 130 mmHg BP Diastolic 78 mmHg Body Temperature 97.7 F Heart Rate 40 /min Respiratory Rate 20 /min Weight 217.38 lb Weight 98.601 kg Height 68.5 inches 5'8.50" BMI (Body Mass Index) 32.6 kg/m2 O2 % BldC Oximetry 98 % [place] Body Weight 154 lb 03/20/2024 11:07am BP Systolic 134 mmHg large cuf f BP Diastolic 64 mmHg large cuff Body Temperature 97.6 F Heart Rate 59 /min Weight 219.38 lb Weight 99.508 kg O2 % BldC Oximetry 95 % Results Test Acquired Date Facility Test Result H/L Range Note CBC W/Diff 04/10/2024 [facility]. [address] [place] [address] WBC 9.0 10^3/M3 3.1-9.2 RBC 4.22 10^6/M3 4.00-5.80 HGB 13.6 GR/DL 12.5-17.5 HCT 40.9 % 37.5-52.5 MCV 96.9 CUMICR High 82.6-95.8 MCH 32.4 PICOGR 27.9-32.9 MCHC 33.4 % 32.6-35.4 RDW 14.3 % 11.4-14.6 PLT 238 10^3/M3 140-350 MPV 9.6 CUMICR 7.0-10.6 %Neut 59.5 % 40.0-75.0 %Lymph 31.4 % 17.0-45.0 %Moody 6.0 % 1.0-11.0 %Eos 2.0 % 0.0-6.0 %Baso 1.1 % 0.0-2.0 #Neut 5.4 10^3/M3 1.5-8.0 #Lymph 2.8 10^3/M3 0.8-3.2 #Moody 0.5 10^3/M3 0.0-0.8 #Eos 0.2 10^3/m3 0.0-0.4 #Baso 0.1 10^3/m3 0.0-0.2 Comp. Met 04/10/2024 [facility]. [address] [place] [address] [phone] Glucose 95 mg/dL 70-110 BUN 32 mg/dL High 6-25 Creatinine 1.0 mg/dL 0.7-1.3 Sodium 140 mEq/L 135-145 Potassium 4.1 mEq/L 3.5-5.0 Chloride 102 mEq/L 95-107 Co-2 27 mEq/L 24-31 Alk Phos 42 IU/L Low 43-122 Alt(SGPT) 16 IU/L 10-40 Ast(Sgot) 14 IU/L 3-42 T.Bilirubin 0.9 mg/dL 0.1-1.3 Calcium 10.0 mg/dL 8.5-10.6 Tot.Protein 6.0 g/dL 5.8-8.0 Albumin 4.3 g/dL 3.0-5.2 Globulin 1.7 g/dL Low 2.0-3.4 GFR 77 ML/MIN/1.73 SQM >60 Lipid 04/10/2024 [facility] [address] [place] [address] [phone] Cholesterol 144 mg/dL 0-200 1 Triglyceride 116 mg/dL 0-150 2 HDLD 52 mg/dL See Comment 3 Measured LDL 73 mg/dL 0-130 4 Calc VLDL 23.2 mg/dL See Comment 5 Chol/HDL 2.8 RATIO See Comment 6 Non-HDL 92 mg/dL See Comment 7 Laboratory test finding 04/10/2024 [facility] [address] [place] [address] TSH 1.36 uIU/mL 0.50-6.00 Hba1c 04/10/2024 [facility] [address] [place] [address] A1c 5.60 % 4.70-6.50 8 Laboratory test finding 04/10/2024 [facility] [address] [place] [address] Psa2 0.6 ng/mL 0.0-4.0 Urinalysis,Cu lt If Indicated 04/10/2024 [facility] [address] [place], [place] [id number] RFLX Culture NO Urinalysis 04/10/2024 [facility] [address] [place] [address] Color YELLOW Appearance CLEAR Clear Spec.Grav. 1.027 High 1.005-1.025 Leukocytes NEGATIVE Negative Nitrite NEGATIVE Negative PH 6.0 6.0-7.5 Protein TRACE Abnormal Negative Urine Glucose NEGATIVE Negative Ketone NEGATIVE Negative Urobilinogen NORMAL E.U./DL Normal Bilirubin NEGATIVE Negative Blood NEGATIVE Negative WBC-U 0-2 /HPF 0-5/HPF RBC-U 0-2 /HPF 0-5/HPF Bacteria NONE SEEN None Seen Hyaline Casts 11-20 /LPF Abnormal None S een Squamous 0-2 /HPF 0-5/HPF 1 CHOLESTEROL Less [...] 270-11 240-10 Procedures Date Code Description Status 04/10/2024 29096 Venipuncture Routine Complet ed 03/20/2024 G2211 Continuation of care e/m vis it add on Completed 12/27/2023 76701 Therapeutic Procedure Group Completed 12/27/2023 61791 Manual Machine Compositor 1/> Area 15 Min Each Region Completed 12/27/2023 65173 Therapy Proc, Neuromuscular Reeducation Of Movement Completed 12/27/2023 34555 Therapy Proc 1/> Area 15Min Ea Completed 12/22/2023 16733 Manual Machine Compositor 1/> Area 15 Min Each Region Completed 12/22/2023 19567 Therapy Proc, Neuromuscular Reeducation Of Movement Completed 12/22/2023 62322 Therapy Proc 1/> Area 15Min Ea Completed 12/20/2023 84102 Therapeutic Procedure Group Completed 12/20/2023 59184 Manual Machine Compositor 1/> Area 15 Min Each Region Completed 12/20/2023 49270 Therapy Proc, Neuromuscular Reeducation Of Movement Completed 12/20/2023 26728 Therapy Proc 1/> Area 15Min Ea Completed 12/14/2023 3078F PVRP Diastolic BP <80 mmHg C ompleted 12/14/2023 3074F PVRP Systolic BP <130 mmHg C ompleted 12/14/2023 1101F PT SCR Future Fall Risk, No Fall Or 1 W/Out Injury Completed 12/13/2023 87307 Therapy Proc 1/> Area 15Min Ea Completed 12/13/2023 40291 Therapy Proc, Neuromuscular Reeducation Of Movement Completed 12/13/2023 47521 Therapeutic Procedure Group Completed 12/13/2023 15977 Manual Machine Compositor 1/> Area 15 Min Each Region Completed 12/06/2023 17577 Therapeutic Procedure Group Completed 12/06/2023 38304 Manual Machine Compositor 1/> Area 15 Min Each Region Completed 12/06/2023 55330 Therapy Proc, Neuromuscular Reeducation Of Movement Completed 12/06/2023 76160 Therapy Proc 1/> Area 15Min Ea Completed 11/29/2023 80283 Manual Machine Compositor 1/> Area 15 Min Each Region Completed 11/29/2023 29297 Therapy Proc, Neuromuscular Reeducation Of Movement Completed 11/29/2023 54796 Therapy Proc 1/> Area 15Min Ea Completed 11/24/2023 36746 Manual Machine Compositor 1/> Area 15 Min Each Region Completed 11/24/2023 31671 Therapy Proc 1/> Area 15Min Ea Completed 11/24/2023 62971 Therapy Proc, Neuromuscular Reeducation Of Movement Completed 11/22/2023 08278 Physical Therapy Evaluation Low Complexity Completed 11/22/2023 66739 Manual Machine Compositor 1/> Area 15 Min Each Region Completed 11/22/2023 01889 Therapy Proc 1/> Area 15Min Ea Completed 11/14/2023 J3301 Injection Kenalog 10 MG NDC [id number] Completed 11/14/2023 77704 Inject/Drain Arthrocentesis Major Joint/Bursa Completed 03/20/2014 [id number] Colonoscopy Completed Medical Devices Description No Information [...] hip M70.61 Trochanteric bursiti s, right hip Assessments Date Code Description Provider 04/10/2024 I10 Essential (primary) hyperten adam [facility] - [place] 04/10/2024 E78.2 Mixed hyperlipidemia Lab - [place] 04/10/2024 R73.01 Impaired fasting glucose Lab - [place] 04/10/2024 N40.1 Benign prostatic hyperplasia with lower urinary tract symptoms Lab - [place] 04/03/2024 Z01.818 Encounter for ot her preprocedural examination Casey Jasso PA-C 03/20/2024 K52.839 Microscopic colitis, unspeci fied CASTILLO VelazquezC 03/20/2024 E86.0 Dehydration CASTILLO MolinaC 12/27/2023 M25.551 Pain in right hip Gavin Dent, DPT 12/27/2023 M54.50 Low back pain, unspecified A lexander Dent, DPT 12/22/2023 M25.551 Pain in right hip Gavin Dent, DPT 12/22/2023 M54.50 Low back pain, unspecified A lexander Dent, DPT 12/20/2023 M25.551 Pain in right hip Gavin Dent, DPT 12/20/2023 M54.50 Low back pain, unspecified A lexander Dent, DPT 12/14/2023 Z00.01 Encounter for [facility] adult medical examination with abnormal findings Casey Jasso PA-C 12/14/2023 I10 Essential (primary) hyperten adam Casey Jasso PA-C 12/14/2023 E78.2 Mixed hyperlipidemia Casey Jasso PA-C 12/14/2023 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, right hip Casey Jasso PA-C 12/14/2023 R73.01 Impaired fasting glucose CASTILLO PughC 12/13/2023 M25.551 Pain in right hip Gavin Dent, DPT 12/13/2023 M54.50 Low back pain, unspecified A lexander Dent, DPT 12/06/2023 M25.551 Pain in right hip Gavin Dent, DPT 12/06/2023 M54.50 Low back pain, unspecified A lexander Dent, DPT 11/29/2023 M25.551 Pain in right hip Gavin Arnett, DPT 11/29/2023 M54.50 Low back pain, unspecified A meng Arnett, DPT 11/24/2023 M25.551 Pain in right hip Gavin Arnett, DPT 11/24/2023 M54.50 Low back pain, unspecified A meng Arnett, DPT 11/22/2023 M25.551 Pain in right hip Gavin Arnett, DPT 11/22/2023 M54.50 Low back pain, unspecified A meng Arnett, DPT 11/14/2023 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
--- OUTSIDE RECORDS SUMMARY | 2024-04-13 06:19 | External Medical Summary | Continuity of Care Document ---
Author Name Unknown Organization Family Practice 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 90gm Shirley Arthur MD 04/03/2024 Ntylglibuxc560zp Tablets One daily x 7 days 7tabs Shirley Arthur MD 04/03/2024 Ondansetron HCL4mg Tablets take 1 tablet by mouth every 6 hours as needed for nausea 30tabs Shirley Atrhur MD 03/20/2024 Tramadol PNF79ta Tablets 1 by mouth three times a day as needed pain 60tabs Shirley Arthur MD 11/25/2023 Montelukast Hlvgij72cu Tablets take 1 tablet by mouth every night 90tabs Shirley Arthur MD 02/03/2023 Tamsulosin HCL0.4mg Capsules 1 by mouth every day 90caps Shirley Arthur MD 08/12/2022 Cetirizine TWV31ca Tablets 1 by mouth every day as needed 90tabs Shirley Arthur MD 10/09/[address] Take 1 Tablet Twice A Day as Needed For Joint Pain 180tabs M15.9 Shirley Arthur MD 10/09/2020 Losartan Wifnhchli026aa Tablets Take 1 Tablet Daily 90tabs I10 Shirley Arthur MD 10/22/2019 Yuwijllkvjrxegutceu30.5mg Tablets Take 1 Tablet Daily 90tabs I10 Shirley Arthur MD 10/22/2019 Terazosin WVG83ta Capsules once daily N40.1 Kt Arrieta JR, MD 02/08/2019 Atorvastatin Wzfapep76pr Tablets Take 1 Tablet Daily 90tabs Shirley Arthur MD Centrum MultigummiesChewtabs John Cunningham MD Luis Daniel Low Ygri27zk Tablets DR 1 by mouth every day John Cunningham MD History Medications Konngt5vl TBPK use as directed 21units Chaim Fernandez MD 04/03/2024 - 04/10/2024 Pkwbi029mj Tablets 1 by mouth twice a day x 7 days 14tabs Shirley Arthur MD 03/20/2024 - 03/27/2024 Sxxhgjvgrq55ha Tablets Take Two Tablets By Mouth For 5 Days Then Take One Tablet By Mouth For 5 Days 15tabs Shirley Arthur MD 11/14/2023 - 03/20/2024 Medications Administered in Office Medication SIG Qnty Indications Ordering Provider Date Injection Kenalog 10 MG NDC [id number] Johnie Velazquez-Kishor 11/14/2023 Injection Kenalog 10 MG NDC 85707954490Qohnevktd Johine Velazquez-Kishor 09/26/2023 Injection Dexamethasone Sodium Phosphate, 1 MGInjection Casey Jasso PA-C 09/12 Injection Dexamethasone Sodium Phosphate, 1 MGInjection Casey Jasso PA-C 01/2023 Injection Dexamethasone Sodium Phosphate, 1 MGInjection Casey D. Lazorka, PA-C 03/2023 Injection Kenalog 10 MG NDC [id number] Casey Ansaria, P A-C 02/03/2023 Injection Dexamethasone [...] PA-C 04/2022 Injection Kenalog 10 MG NDC 33396550547Zggrmmyyj Casey Ansaria, P A-C 05/14/2021 Immunizations CPT Code Status Date Vaccine Lot # [id number] Given 06/09/2023 Influenza Vaccine High Do se 0.5ML Age 65 & > [id number] 20475 Given 06/09/2023 Tdap (Tetanus, diphtheria & acel. pertussis) Adacel or Boostrix [id number] 54399 Given 08/24/2022 Moderna Sars-Co v-2 (Covid-19) Vaccine, BiValent Booster 12y+ [id number] 44986 Given 01/05/2022 Moderna Covid-1 9 Vaccine 50mcg Booster-EMR Doc Only 35788 Given 08/25/2021 Influenza Vaccine High Do se 0.5ML Age 65 & > 41198 Given 07/14/2021 Moderna Covid-1 9 Vaccine 50mcg Booster-EMR Doc Only [id number] 54735 Given 11/14/2020 Moderna Sars-Co v-2 (Cov-19) vacc,100 mcg/ 0.5 mL 12Y+EMR Doc Only [id number] 11518 Given 10/17/2020 Moderna Sars-Co v-2 (Cov-19) vacc,100 mcg/ 0.5 mL 12Y+EMR Doc Only [id number] 85036 Given 06/09/2020 Influenza Vaccine High Do se 0.5ML Age 65 & > [id number] 17466 Given 10/08/2019 Pneumococcal Vaccine/Pneu movax 23 [id number] 32037 Given 06/20/2018 Influenza Virus Vaccine, Quadrivalent (Cciiv4), Derived From Cell U-FLU Given 06/20/2018 Influenza,Unspecified 17484 Given 04/03/2018 Pneumococcal Conjugate-Pr evnar 13 [id number] 30918 Given 09/03/2015 Pneumococcal Conjugate-Pr evnar 13 79605 Given 08/06/2015 Tdap (Tetanus, diphtheria & acel. pertussis) Adacel or Boostrix U-FLU Given 06/10/2015 Influenza,Unspecified U-FLU Given 05/30/2014 Influenza,Unspecified U-FLU Given 08/22/2010 Influenza,Unspecified 77261 Refused 05/24/2022 Shingrix 50713 Refused 06/09/2020 Shingrix 36252 Refused 10/08/2019 Influenza Virus Vaccine, Quadrivalent, Im Use 06897 Refused 11/07/2018 Shingrix Vital Signs Date Vital Result Comment 04/03/2024 11:01am BP Systolic 130 mmHg BP Diastolic 78 mmHg Body Temperature 97.7 F Heart Rate 40 /min Respiratory Rate 20 /min Weight 217.38 lb Weight 98.601 kg Height 68.5 inches 5'8.50" BMI (Body Mass Index) 32.6 kg/m2 O2 % BldC Oximetry 98 % [place] Body Weight 154 lb 03/20/2024 11:07am BP Systolic 134 mmHg large cuf f BP Diastolic 64 mmHg large cuff Body Temperature 97.6 F Heart Rate 59 /min Weight 219.38 lb Weight 99.508 kg O2 % BldC Oximetry 95 % Results Test Acquired Date Facility Test Result H/L Range N ote Laboratory test finding 04/10/2024 [facility]. [address] [place] [address] [phone] TSH <pending> Laboratory test finding 04/10/2024 [facility]. [address] [place] [address] [phone] Psa2 <pending> Procedures Date Code Description Status 04/10/2024 42277 Venipuncture Routine Complet ed 03/20/2024 G2211 Continuation of care e/m vis it add on Completed 12/27/2023 91777 Therapeutic Procedure Group Completed 12/27/2023 07164 Manual Centrifugal Chiller Technician 1/> Area 15 Min Each Region Completed 12/27/2023 95767 Therapy Proc, Neuromuscular Reeducation Of Movement Completed 12/27/2023 26711 Therapy Proc 1/> Area 15Min Ea Completed 12/22/2023 21719 Manual Centrifugal Chiller Technician 1/> Area 15 Min Each Region Completed 12/22/2023 13389 Therapy Proc, Neuromuscular Reeducation Of Movement Completed 12/22/2023 77642 Therapy Proc 1/> Area 15Min Ea Completed 12/20/2023 76718 Therapeutic Procedure Group Completed 12/20/2023 97967 Manual Centrifugal Chiller Technician 1/> Area 15 Min Each Region Completed 12/20/2023 78729 Therapy Proc, Neuromuscular Reeducation Of Movement Completed 12/20/2023 76701 Therapy Proc 1/> Area 15Min Ea Completed 12/14/2023 3078F PVRP Diastolic BP <80 mmHg C ompleted 12/14/2023 3074F PVRP Systolic BP <130 mmHg C ompleted 12/14/2023 1101F PT SCR Future Fall Risk, No Fall Or 1 W/Out Injury Completed 12/13/2023 75276 Therapy Proc 1/> Area 15Min Ea Completed 12/13/2023 41144 Therapy Proc, Neuromuscular Reeducation Of Movement Completed 12/13/2023 60894 Therapeutic Procedure Group Completed 12/13/2023 17066 Manual Centrifugal Chiller Technician 1/> Area 15 Min Each Region Completed 12/06/2023 03916 Therapeutic Procedure Group Completed 12/06/2023 36911 Manual Centrifugal Chiller Technician 1/> Area 15 Min Each Region Completed 12/06/2023 78150 Therapy Proc, Neuromuscular Reeducation Of Movement Completed 12/06/2023 34481 Therapy Proc 1/> Area 15Min Ea Completed 11/29/2023 99398 Manual Centrifugal Chiller Technician 1/> Area 15 Min Each Region Completed 11/29/2023 57045 Therapy Proc, Neuromuscular Reeducation Of Movement Completed 11/29/2023 21530 Therapy Proc 1/> Area 15Min Ea Completed 11/24/2023 51791 Manual Centrifugal Chiller Technician 1/> Area 15 Min Each Region Completed 11/24/2023 67729 Therapy Proc 1/> Area 15Min Ea Completed 11/24/2023 71415 Therapy Proc, Neuromuscular Reeducation Of Movement Completed 11/22/2023 72050 Physical Therapy Evaluation Low Complexity Completed 11/22/2023 33106 Manual Centrifugal Chiller Technician 1/> Area 15 Min Each Region Completed 11/22/2023 33761 Therapy Proc 1/> Area 15Min Ea Completed 11/14/2023 J3301 Injection Kenalog 10 MG [facility] [id number] Completed 11/14/2023 70632 Inject/Drain Arthrocentesis Major Joint/Bursa Completed 03/20/2014 [id number] Colonoscopy Completed Medical Devices Description No Information [...] I10 Essential (primary) hyperten adam Lab - [place] 04/10/2024 E78.2 Mixed hyperlipidemia Lab - [place] 04/10/2024 R73.01 Impaired fasting glucose Lab - [place] 04/10/2024 N40.1 Benign prostatic hyperplasia with lower urinary tract symptoms Lab - [place] 04/03/2024 Z01.818 Encounter for ot her preprocedural examination Casey Jasso PA-C 03/20/2024 K52.839 Microscopic colitis, unspeci fied Casey Jasso PA-C 03/20/2024 E86.0 Dehydration Casey reina PA-C 12/27/2023 M25.551 Pain in right hip Gavin Arnett, DPT 12/27/2023 M54.50 Low back pain, unspecified A meng Arnett, DPT 12/22/2023 M25.551 Pain in right hip Gavin Shasta, DPT 12/22/2023 M54.50 Low back pain, unspecified A lexander Shasta, DPT 12/20/2023 M25.551 Pain in right hip Gavin Shasta, DPT 12/20/2023 M54.50 Low back pain, unspecified A lexander Shasta, DPT 12/14/2023 Z00.01 Encounter for [facility] adult medical examination with abnormal findings Casey Jasso PA-C 12/14/2023 I10 Essential (primary) hyperten adam Casey Jasso PA-C 12/14/2023 E78.2 Mixed hyperlipidemia Casey Jasso PA-C 12/14/2023 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, right hip Casey Jasso PA-C 12/14/2023 R73.01 Impaired fasting glucose Vipul Jsaso PA-C 12/13/2023 M25.551 Pain in right hip Gavin Shasta, DPT 12/13/2023 M54.50 Low back pain, unspecified A lexander Shasta, DPT 12/06/2023 M25.551 Pain in right hip Gavin Shasta, DPT 12/06/2023 M54.50 Low back pain, unspecified A lexander Shasta, DPT 11/29/2023 M25.551 Pain in right hip Gavin Shasta, DPT 11/29/2023 M54.50 Low back pain, unspecified A lexander Shasta, DPT 11/24/2023 M25.551 Pain in right hip Gavin Shasta, DPT 11/24/2023 M54.50 Low back pain, unspecified A lexander Shasta, DPT 11/22/2023 M25.551 Pain in right hip Gavin Shasta, DPT 11/22/2023 M54.50 Low back pain, unspecified A lexander Shasta, DPT 11/14/2023 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
--- OUTSIDE RECORDS SUMMARY | 2024-04-13 06:19 | External Medical Summary | Continuity of Care Document ---
Author Name Unknown Organization [facility] Address [address] [place] [address] Phone [phone] Care Team Providers Care Healthcare Educator Name Role Phone Cardiology - Cardiovascular Disease Care Team In formation [employer] Unavailable Problems Active Problems Provider Date Morbid [...] CASTILLO Velazquez Onset: 01/02/2018 Acquired trigger finger Casye Jasso PA-C Onset: 01/02/2018 Adult health examination Casey Jasso PA-C Onset: 04/03/2018 Dermatophytosis Casey Jasso PA-C Onset: 0 04/03/2018 Atopic dermatitis Casey Jasso PA-C Onset: 07/04/2018 Syncope Onset: 9 Note: Document: 10/09/18 - e [facility] Discharge Summary Sprain of medial collateral ligament of knee Casey Jasso PA-C Onset: 10/12/2018 Dermatophytosis of the body Johnie Velazquez Onset: 05/15/2019 Cellulitis of forearm CASTILLO VelazquezC On set: 05/15/2019 Acute maxillary sinusitis CASTILLO [...] SIG Qnty Indications Order ing Provider Date Ondansetron HCL4mg Tablets take 1 tablet by mouth every 6 hours as needed for nausea 30tabs Shirley Arthur MD 03/20/2024 Tramadol KIU23cj Tablets 1 by mouth three times a day as needed pain 60tabs Shirley Arthur MD 11/25/2023 Montelukast Zsflbu42lc Tablets take 1 tablet by mouth every night 90tabs Shirley Arthur MD 02/03/2023 Tamsulosin HCL0.4mg Capsules 1 by mouth every day 90caps Shirley Arthur MD 08/12/2022 Hzgidfeibus560do Capsules take 1 capsule 4 times daily as needed for cough 60caps Shirley Arthur MD 10/20/2021 Cetirizine TSY95ou Tablets 1 by mouth every day as needed 90tabs Shirley Arthur MD 10/09/[address] Take 1 Tablet Twice A Day as Needed For Joint Pain 180tabs M15.9 Shirley Arthur MD 10/09/2020 Losartan Cgzymeuod527jy Tablets Take 1 Tablet Daily 90tabs I10 Shirley Arthur MD 10/22/2019 Vlqnwrzqoshzxbqdpdk15.5mg Tablets Take 1 Tablet Daily 90tabs I10 Shirley Arthur MD 10/22/2019 Vitamin C W/Vitamin C129-492zj-Atsv Capsules 1 by mouth every day Kt Arrieta JR, MD 07/10/2019 Terazosin SGJ86nc Capsules once daily N40.1 Kt Arrieta JR, MD 02/08/2019 Fzlxdntym40wq Tablets take 1 tablet every day with food 90tabs M17.0 Alex Macedo MD 11/07/2018 Fish Oil Pylgjharadm8098ex Capsules 1 by mouth every day 30caps John Cunningham MD 06/10/2017 Atorvastatin Haytirl33os Tablets Take 1 Tablet Daily 90tabs Shirley Arthur MD Centrum MultigummiesChewtabs John Cunningham MD Fiber Select GummiesChewtabs 1 gummies daily with glass of water John Cunningham MD Luis Daniel Low Jwrs19bq Tablets DR 1 by mouth every day John Cunningham MD History Medications Zwoum111th Tablets 1 by mouth twice a day x 7 days 14tabs Shirley Arthur MD 03/20/2024 - 03/27/2024 Pwyhrpjsyd57sx Tablets Take Two Tablets By Mouth For 5 Days Then Take One Tablet By Mouth For 5 Days 15tabs Shirley Arthur MD 11/14/2023 - 03/20/2024 Medications Administered in Office Medication SIG Qnty Indications Ordering Provider Date Injection Kenalog 10 MG NDC [id number] Johnie Velazquez A-C 11/14/2023 Injection Kenalog 10 MG NDC [id number] Johnie Velazquez A-C 09/26/2023 Injection Dexamethasone Sodium Phosphate, 1 MGInjection Casey Jasso, PA-C 09/12 Injection Dexamethasone Sodium Phosphate, 1 MGInjection Casey D. Lazorka, PA-C 01/2023 Injection Dexamethasone Sodium Phosphate, 1 MGInjection Casey D. Lazorka, PA-C 03/2023 Injection Kenalog 10 MG ND [id number] Casey D. Lazjaia, P A-C 02/03/2023 Injection [...] Lazorka, PA-C 04/2022 Injection Kenalog 10 MG [facility] [id number] Casey Becky. Lazjaia, P A-C 05/14/2021 Immunizations CPT Code Status Date Vaccine Lot # [id number] Given 06/09/2023 Influenza Vaccine High Do se 0.5ML Age 65 & > [id number] Given 06/09/2023 Tdap (Tetanus, diphtheria & acel. pertussis) Adacel or Boostrix [id number] Given 08/24/2022 Moderna Sars-Co v-2 (Covid-19) Vaccine, BiValent Booster [id number]+ [id number] 05640 Given 01/05/2022 Moderna Covid-1 9 Vaccine 50mcg Booster-EMR Doc Only [id number] Given 08/25/2021 Influenza Vaccine High Do se 0.5ML Age 65 & > [id number] Given 07/14/2021 Moderna Covid-1 9 Vaccine 50mcg Booster-EMR Doc Only [id number] 63080 Given 11/14/2020 Moderna Sars-Co v-2 (Cov-19) vacc,100 mcg/ 0.5 mL 12Y+EMR Doc Only [id number] 99691 Given 10/17/2020 Moderna Sars-Co v-2 (Cov-19) vacc,100 mcg/ 0.5 mL 12Y+EMR Doc Only [id number] 85358 Given 06/09/2020 Influenza Vaccine High Do se 0.5ML Age 65 & > [id number] 93483 Given 10/08/2019 Pneumococcal Vaccine/Pneu movax 23 [id number] 13196 Given 06/20/2018 Influenza Virus Vaccine, Quadrivalent (Cciiv4), Derived From Cell U-FLU Given 06/20/2018 Influenza,Unspecified 38824 Given 04/03/2018 Pneumococcal Conjugate-Pr evnar 13 [id number] 32404 Given 09/03/2015 Pneumococcal Conjugate-Pr evnar 13 [id number] Given 08/06/2015 Tdap (Tetanus, diphtheria & acel. pertussis) Adacel or Boostrix U-FLU Given 06/10/2015 Influenza,Unspecified U-FLU Given 05/30/2014 Influenza,Unspecified U-FLU Given 08/22/2010 Influenza,Unspecified 34727 Refused 05/24/2022 Shingrix 95057 Refused 06/09/2020 Shingrix 85221 Refused 10/08/2019 Influenza Virus Vaccine, Quadrivalent, Im Use [id number] Refused 11/07/2018 Shingrix Vital Signs Date Vital [...] kg/m2 O2 % BldC Oximetry 95 % [place] Body Weight 154 lb Results Test Acquired Date Facility Test Result H/L Range N ote CBC W/Diff 10/04/2023 [facility]. [address] [place], [place] [id number] [phone] WBC 7.8 10^3/M3 3.1-9.2 RBC 4.26 10^6/M3 4.00-5.80 HGB 13.8 GR/DL 12.5-17.5 HCT 41.2 % 37.5-52.5 MCV 96.5 CUMICR High 82.6-95.8 MCH 32.4 PICOGR 27.9-32.9 MCHC 33.6 % 32.6-35.4 RDW 14.5 % 11.4-14.6 PLT 224 10^3/M3 140-350 MPV 8.4 CUMICR 7.0-10.6 %Neut 72.3 % 40.0-75.0 %Lymph 18.7 % 17.0-45.0 %[place] 6.6 % 1.0-11.0 %Eos 1.9 % 0.0-6.0 %[place] 0.5 % 0.0-2.0 #Neut 5.6 10^3/M3 1.5-8.0 #Lymph 1.5 10^3/M3 0.8-3.2 #[place] 0.5 10^3/M3 0.0-0.8 #Eos 0.1 10^3/m3 0.0-0.4 #[place] 0.0 10^3/m3 0.0-0.2 Comp. Met 10/04/2023 [facility]. [address] [place] [address] [phone] Glucose 92 mg/dL 70-110 BUN 15 mg/dL [...] 2.0-3.4 GFR 99 ML/MIN/1.73SQM >60 Lipid 10/04/2023 [facility] [address] [place] [address] [phone] Cholesterol 176 mg/dL 0-200 1 Triglyceride 102 mg/dL 0-150 2 HDLD 63 mg/dL See Comment 3 Measured LDL 99 mg/dL 0-130 4 Calc VLDL 20.4 mg/dL See Comment 5 Chol/HDL 2.8 RATIO See Comment 6 Non-HDL 113 mg/dL See Comment 7 Laboratory test finding 10/04/2023 [facility] [address] [place] [address] [phone] TSH 1.38 uIU/mL 0.50-6.00 Hba1c 10/04/2023 [facility] [address] [place] [address] [phone] A1c 6.70 % High 4.70-6.50 8 Laboratory test finding 10/04/2023 [facility] [address] [place], [place] [id number] [phone] Psa2 0.8 ng/mL 0.0-4.0 Urinalysis,Cult If Indicated 10/04/2023 [facility] [address] [place], [place] [id number] [phone] RFLX Culture NO Urinalysis 10/04/2023 [facility] [address] [place] [address] [phone] Color LIGHT-YELL OW Appearance CLEAR Clear Spec.Grav. [...] 270-11 240-10 Procedures Date Code Description Status 03/20/2024 G2211 Continuation of care e/m vis it add on Completed 12/27/2023 90444 Therapeutic Procedure Group Completed 12/27/2023 54386 Manual Meter Changes Records Clerk 1/> Area 15 Min Each Region Completed 12/27/2023 71534 Therapy Proc, Neuromuscular Reeducation Of Movement Completed 12/27/2023 48093 Therapy Proc 1/> Area 15Min Ea Completed 12/22/2023 83855 Manual Meter Changes Records Clerk 1/> Area 15 Min Each Region Completed 12/22/2023 10464 Therapy Proc, Neuromuscular Reeducation Of Movement Completed 12/22/2023 93216 Therapy Proc 1/> Area 15Min Ea Completed 12/20/2023 19486 Therapy Proc, Neuromuscular Reeducation Of Movement Completed 12/20/2023 28574 Therapy Proc 1/> Area 15Min Ea Completed 12/20/2023 16612 Manual Meter Changes Records Clerk 1/> Area 15 Min Each Region Completed 12/20/2023 45227 Therapeutic Procedure Group Completed 12/14/2023 3078F PVRP Diastolic BP <80 mmHg C ompleted 12/14/2023 3074F PVRP Systolic BP <130 mmHg C ompleted 12/14/2023 1101F PT SCR Future Fall Risk, No Fall Or 1 W/Out Injury Completed 12/13/2023 92387 Therapeutic Procedure Group Completed 12/13/2023 31701 Manual Meter Changes Records Clerk 1/> Area 15 Min Each Region Completed 12/13/2023 19181 Therapy Proc, Neuromuscular Reeducation Of Movement Completed 12/13/2023 45975 Therapy Proc 1/> Area 15Min Ea Completed 12/06/2023 74514 Therapeutic Procedure Group Completed 12/06/2023 96035 Therapy Proc 1/> Area 15Min Ea Completed 12/06/2023 90964 Manual Meter Changes Records Clerk 1/> Area 15 Min Each Region Completed 12/06/2023 80755 Therapy Proc, Neuromuscular Reeducation Of Movement Completed 11/29/2023 79378 Manual Meter Changes Records Clerk 1/> Area 15 Min Each Region Completed 11/29/2023 15689 Therapy Proc, Neuromuscular Reeducation Of Movement Completed 11/29/2023 03448 Therapy Proc 1/> Area 15Min Ea Completed 11/24/2023 87278 Manual Meter Changes Records Clerk 1/> Area 15 Min Each Region Completed 11/24/2023 92804 Therapy Proc, Neuromuscular Reeducation Of Movement Completed 11/24/2023 47182 Therapy Proc 1/> Area 15Min Ea Completed 11/22/2023 38405 Manual Meter Changes Records Clerk 1/> Area 15 Min Each Region Completed 11/22/2023 13044 Therapy Proc 1/> Area 15Min Ea Completed 11/22/2023 23371 Physical Therapy Evaluation Low Complexity Completed 11/14/2023 J3301 Injection Kenalog 10 MG AKC [id number] Completed 11/14/2023 44048 Inject/Drain Arthrocentesis Major Joint/Bursa Completed 10/11/2023 3078F PVRP Diastolic BP <80 mmHg C ompleted 10/11/2023 3074F PVRP Systolic BP <130 mmHg C ompleted 10/11/2023 1101F PT SCR Future Fall Risk, No Fall Or 1 W/Out Injury Completed 10/04/2023 45926 Venipuncture Routine Complet ed 03/20/2014 [id number] Colonoscopy Completed Medical Devices Description No Information [...] 32.0-32.9, adult Assessments Date Code Description Provider 03/20/2024 K52.839 Microscopic colitis, unspeci fied Casey Jasso PA-C 03/20/2024 E86.0 Dehydration Casey reina PA-C 12/27/2023 M25.551 Pain in right hip Gavin Coffey, DPT 12/27/2023 M54.50 Low back pain, unspecified A lexander Coffey, DPT 12/22/2023 M25.551 Pain in right hip Gavin Coffey, DPT 12/22/2023 M54.50 Low back pain, unspecified A lexander Coffey, DPT 12/20/2023 M25.551 Pain in right hip Gavin Coffey, DPT 12/20/2023 M54.50 Low back pain, unspecified A lexander Coffey, DPT 12/14/2023 Z00.01 Encounter for [facility] adult medical examination with abnormal findings Casey Jasso PA-C 12/14/2023 I10 Essential (primary) hyperten adam Casey Jasso PA-C 12/14/2023 E78.2 Mixed hyperlipidemia Casey Jasso PA-C 12/14/2023 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, right hip Casey Jasso PA-C 12/14/2023 R73.01 Impaired fasting glucose Vipul Jasso PA-C 12/13/2023 M25.551 Pain in right hip Gavin Coffey, DPT 12/13/2023 M54.50 Low back pain, unspecified A lexander Coffey, DPT 12/06/2023 M25.551 Pain in right hip Gavin Coffey, DPT 12/06/2023 M54.50 Low back pain, unspecified A lexander Coffey, DPT 11/29/2023 M25.551 Pain in right hip Gavin Coffey, DPT 11/29/2023 M54.50 Low back pain, unspecified A lexander Coffey, DPT 11/24/2023 M25.551 Pain in right hip Gavin Coffey, DPT 11/24/2023 M54.50 Low back pain, unspecified A lexander Coffey, DPT 11/22/2023 M25.551 Pain in right hip Gavin Coffey, DPT 11/22/2023 M54.50 Low back pain, unspecified A lexander Coffey, DPT 11/14/2023 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, right hip Casey Jasso PA-C 11/14/2023 M70.61 Trochanteric bursitis, right hip Casey Jasso PA-C 10/11/2023 Z00.01 Encounter for [facility] adult medical examination with abnormal findings [...] I10 Essential (primary) hyperten adam Lab - [facility] 10/04/2023 E78.2 Mixed hyperlipidemia Shirley Arthur MD 10/04/2023 E78.2 Mixed hyperlipidemia Lab - [place] 10/04/2023 R73.01 Impaired fasting glucose Zack Arthur MD 10/04/2023 R73.01 Impaired fasting glucose Lab - [facility] 10/04/2023 N40.1 Benign prostatic hyperplasia with lower urinary tract symptoms Shirley Arthur MD 10/04/2023 N40.1 Benign prostatic hyperplasia with lower urinary tract symptoms Lab - [facility] Plan of Treatment Future Appointment(s):* 04/03/2024 11:00 am - Casey Jasso PA-C at [facility] * 04/10/2024 8:00 am - Lab - [facility] * 04/17/2024 9:00 am - Casey Jasso PA-C at [facility] 03/20/2024 - Casey Jasso PA-C* K52.839 Microscopic colitis, unspecified* Comments:* Complete Cipro Consider imaging if or stool sample if symptoms persist [place] diet * E86.0 Dehydration* Comments:* Increase fluid [...] [facility] Patient Declined Gavin Arnett, LEONILAT Created [id number] [facility] [place] [phone]
--- OUTSIDE RECORDS SUMMARY | 2024-04-13 06:20 | External Medical Summary | Continuity of Care Document ---
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 Unavailable Problems Active Problems Provider Date Morbid obesity Casey Jasso PA-C Onset: 0 03/30/2019 Body mass index 30+ - obesity Casey Jasso PA-C Onset: 03/30/2019 Essential hypertension Casey Jasso PA-C O nset: 06/10/2017 Mixed hyperlipidemia Casey Jasso PA-C Ons et: 06/10/2017 Obesity Casey Jasso PA-C Onset: 0 06/10/2017 Localized, primary osteoarthritis Csaey gtz PA-C Onset: 06/10/2017 Impaired fasting glycemia CASTILLO Velazquez Onset: 01/02/2018 Acquired trigger finger Casey Jasso PA-C Onset: 01/02/2018 Adult health examination Casey Jasso PA-C Onset: 04/03/2018 Dermatophytosis Casey Jasso PA-C Onset: 0 04/03/2018 Atopic dermatitis Casey Jasso PA-C Onset: 07/04/2018 Syncope Onset: 9 Note: Document: 10/09/18 - e [facility] Discharge Summary Sprain of medial collateral [...] SIG Qnty Indications Order ing Provider Date Qafnd277jp Tablets 1 by mouth twice a day x 7 days 14tabs Shirley Arthur MD 03/20/2024 - 03/27/2024 Ondansetron HCL4mg Tablets take 1 tablet by mouth every 6 hours as needed for nausea 30tabs Shirley Arthur MD 03/20/2024 Tramadol VZQ40ij Tablets 1 by mouth three times a day as needed pain 60tabs Shirley Arthur MD 11/25/2023 Montelukast Vrrhqa94st Tablets take 1 tablet by mouth every night 90tabs Shirley Arthur MD 02/03/2023 Tamsulosin HCL0.4mg Capsules 1 by mouth every day 90caps Shirley Arthur MD 08/12/2022 Aiuwmmddqps216uv Capsules take 1 capsule 4 times daily as needed for cough 60caps Shirley Arthur MD 10/20/2021 Cetirizine WMC25ej Tablets 1 by mouth every day as needed 90tabs Shirley Arthur MD 10/09/[address] Take 1 Tablet Twice A Day as Needed For Joint Pain 180tabs M15.9 Shirley Arthur MD 10/09/2020 Pursoresjteytiblron47.5mg Tablets Take 1 Tablet Daily 90tabs I10 Shirley Arthur MD 10/22/2019 Losartan Exifyuqim778mf Tablets Take 1 Tablet Daily 90tabs I10 Shirley Arthur MD 10/22/2019 Vitamin C W/Vitamin W710-443no-Pawm Capsules 1 by mouth every day Kt Arrieta JR, MD 07/10/2019 Terazosin AHQ54co Capsules once daily N40.1 Kt Arrieta JR, MD 02/08/2019 Btqizvezd63ci Tablets take 1 tablet every day with food 90tabs M17.0 Alex Macedo MD 11/07/2018 Fish Oil Ogmclxdzlwg5995ma Capsules 1 by mouth every day 30caps John Cunningham MD 06/10/2017 Atorvastatin Kgqurjp13bm Tablets Take 1 Tablet Daily 90tabs Shirley Arthur MD Centrum MultigummiesChewtabs John Cunningham MD Fiber Select GummiesChewtabs 1 gummies daily with glass of water John Cunningham MD Luis Daniel Low Oosp48tb Tablets DR 1 by mouth every day John Cunningham MD History Medications Zlmooqcfxa97kv Tablets Take Two Tablets By Mouth For 5 Days Then Take One Tablet By Mouth For 5 Days 15tabs Shirley Arthur MD 11/14/2023 - 03/20/2024 Medications Administered in Office Medication SIG Qnty Indications Ordering Provider Date Injection Kenalog 10 MG NDC [id number] Johnie Velazquez A-C 11/14/2023 Injection Kenalog 10 MG NDC [id number] Johnie Velazquez A-C 09/26/2023 Injection Dexamethasone Sodium Phosphate, 1 MGInjection Casey Jasso, PA-C 09/12 Injection Dexamethasone Sodium Phosphate, 1 MGInjection Casey D. Lazorka, PA-C 01/2023 Injection Dexamethasone Sodium Phosphate, 1 MGInjection Casey D. Lazorka, PA-C 03/2023 Injection Kenalog 10 MG ND [id number] Casey D. Lazjaia, P A-C 02/03/2023 Injection [...] Lazorka, PA-C 04/2022 Injection Kenalog 10 MG [facility] [id number] Casey Becky. Lazjaia, P A-C 05/14/2021 Immunizations CPT Code Status Date Vaccine Lot # [id number] Given 06/09/2023 Influenza Vaccine High Do se 0.5ML Age 65 & > [id number] Given 06/09/2023 Tdap (Tetanus, diphtheria & acel. pertussis) Adacel or Boostrix [id number] Given 08/24/2022 Moderna Sars-Co v-2 (Covid-19) Vaccine, BiValent Booster 12y+ [id number] 49974 Given 01/05/2022 Moderna Covid-1 9 Vaccine 50mcg Booster-EMR Doc Only [id number] Given 08/25/2021 Influenza Vaccine High Do se 0.5ML Age 65 & > [id number] Given 07/14/2021 Moderna Covid-1 9 Vaccine 50mcg Booster-EMR Doc Only [id number] 53264 Given 11/14/2020 Moderna Sars-Co v-2 (Cov-19) vacc,100 mcg/ 0.5 mL 12Y+EMR Doc Only [id number] 77017 Given 10/17/2020 Moderna Sars-Co v-2 (Cov-19) vacc,100 mcg/ 0.5 mL 12Y+EMR Doc Only [id number] 22731 Given 06/09/2020 Influenza Vaccine High Do se 0.5ML Age 65 & > [id number] 45989 Given 10/08/2019 Pneumococcal Vaccine/Pneu movax 23 [id number] 40645 Given 06/20/2018 Influenza Virus Vaccine, Quadrivalent (Cciiv4), Derived From Cell U-FLU Given 06/20/2018 Influenza,Unspecified 49713 Given 04/03/2018 Pneumococcal Conjugate-Pr evnar 13 [id number] 77144 Given 09/03/2015 Pneumococcal Conjugate-Pr evnar 13 61039 Given 08/06/2015 Tdap (Tetanus, diphtheria & acel. pertussis) Adacel or Boostrix U-FLU Given 06/10/2015 Influenza,Unspecified U-FLU Given 05/30/2014 Influenza,Unspecified U-FLU Given 08/22/2010 Influenza,Unspecified 21754 Refused 05/24/2022 Shingrix 23164 Refused 06/09/2020 Shingrix 97528 Refused 10/08/2019 Influenza Virus Vaccine, Quadrivalent, Im Use 94541 Refused 11/07/2018 Shingrix Vital Signs Date Vital [...] kg/m2 O2 % BldC Oximetry 95 % [place] Body Weight 154 lb Results Test Acquired Date Facility Test Result H/L Range N ote CBC W/Diff 10/04/2023 [facility] [address] [place], [place] [id number] [phone] WBC 7.8 10^3/M3 3.1-9.2 RBC 4.26 10^6/M3 4.00-5.80 HGB 13.8 GR/DL 12.5-17.5 HCT 41.2 % 37.5-52.5 MCV 96.5 CUMICR High 82.6-95.8 MCH 32.4 PICOGR 27.9-32.9 MCHC 33.6 % 32.6-35.4 RDW 14.5 % 11.4-14.6 PLT 224 10^3/M3 140-350 MPV 8.4 CUMICR 7.0-10.6 %Neut 72.3 % 40.0-75.0 %Lymph 18.7 % 17.0-45.0 %Cottle 6.6 % 1.0-11.0 %Eos 1.9 % 0.0-6.0 %Baso 0.5 % 0.0-2.0 #Neut 5.6 10^3/M3 1.5-8.0 #Lymph 1.5 10^3/M3 0.8-3.2 #Cottle 0.5 10^3/M3 0.0-0.8 #Eos 0.1 10^3/m3 0.0-0.4 #Baso 0.0 10^3/m3 0.0-0.2 Comp. Met 10/04/2023 [facility] [address] [place] [address] [phone] Glucose 92 mg/dL 70-110 BUN 15 mg/dL [...] 2.0-3.4 GFR 99 ML/MIN/1.73SQM >60 Lipid 10/04/2023 [facility] [address] [place] [address] [phone] Cholesterol 176 mg/dL 0-200 1 Triglyceride 102 mg/dL 0-150 2 HDLD 63 mg/dL See Comment 3 Measured LDL 99 mg/dL 0-130 4 Calc VLDL 20.4 mg/dL See Comment 5 Chol/HDL 2.8 RATIO See Comment 6 Non-HDL 113 mg/dL See Comment 7 Laboratory test finding 10/04/2023 [facility] [address] [place] [address] [phone] TSH 1.38 uIU/mL 0.50-6.00 Hba1c 10/04/2023 [facility] [address] [place] [address] [phone] A1c 6.70 % High 4.70-6.50 8 Laboratory test finding 10/04/2023 [facility] [address] [place], [place] [id number] [phone] Psa2 0.8 ng/mL 0.0-4.0 Urinalysis,Cult If Indicated 10/04/2023 [facility] [address] [place], [place] [id number] [phone] RFLX Culture NO Urinalysis 10/04/2023 [facility] [address] [place] [address] [phone] Color LIGHT-YELL OW Appearance CLEAR Clear Spec.Grav. [...] 240-10 Procedures Date Code Description Status 12/27/2023 94342 Manual Keyboard Operator 1/> Area 15 Min Each Region Completed 12/27/2023 88296 Therapeutic Procedure Group Completed 12/27/2023 17471 Therapy Proc 1/> Area 15Min Ea Completed 12/27/2023 18973 Therapy Proc, Neuromuscular Reeducation Of Movement Completed 12/22/2023 41557 Manual Keyboard Operator 1/> Area 15 Min Each Region Completed 12/22/2023 77437 Therapy Proc, Neuromuscular Reeducation Of Movement Completed 12/22/2023 35179 Therapy Proc 1/> Area 15Min Ea Completed 12/20/2023 55622 Therapeutic Procedure Group Completed 12/20/2023 30224 Manual Keyboard Operator 1/> Area 15 Min Each Region Completed 12/20/2023 92763 Therapy Proc, Neuromuscular Reeducation Of Movement Completed 12/20/2023 49499 Therapy Proc 1/> Area 15Min Ea Completed 12/14/2023 3078F PVRP Diastolic BP <80 mmHg C ompleted 12/14/2023 1101F PT SCR Future Fall Risk, No Fall Or 1 W/Out Injury Completed 12/14/2023 3074F PVRP Systolic BP <130 mmHg C ompleted 12/13/2023 78095 Therapeutic Procedure Group Completed 12/13/2023 15777 Manual Keyboard Operator 1/> Area 15 Min Each Region Completed 12/13/2023 75166 Therapy Proc, Neuromuscular Reeducation Of Movement Completed 12/13/2023 75737 Therapy Proc 1/> Area 15Min Ea Completed 12/06/2023 56297 Therapy Proc 1/> Area 15Min Ea Completed 12/06/2023 83766 Therapy Proc, Neuromuscular Reeducation Of Movement Completed 12/06/2023 03971 Therapeutic Procedure Group Completed 12/06/2023 07902 Manual Keyboard Operator 1/> Area 15 Min Each Region Completed 11/29/2023 73372 Manual Keyboard Operator 1/> Area 15 Min Each Region Completed 11/29/2023 13871 Therapy Proc, Neuromuscular Reeducation Of Movement Completed 11/29/2023 51071 Therapy Proc 1/> Area 15Min Ea Completed 11/24/2023 25841 Manual Keyboard Operator 1/> Area 15 Min Each Region Completed 11/24/2023 23043 Therapy Proc, Neuromuscular Reeducation Of Movement Completed 11/24/2023 92266 Therapy Proc 1/> Area 15Min Ea Completed 11/22/2023 87389 Therapy Proc 1/> Area 15Min Ea Completed 11/22/2023 22136 Manual Keyboard Operator 1/> Area 15 Min Each Region Completed 11/22/2023 16170 Physical Therapy Evaluation Low Complexity Completed 11/14/2023 J3301 Injection Kenalog 10 MG [facility] [id number] Completed 11/14/2023 34352 Inject/Drain Arthrocentesis Major Joint/Bursa Completed 10/11/2023 3078F PVRP Diastolic BP <80 mmHg C ompleted 10/11/2023 3074F PVRP Systolic BP <130 mmHg C ompleted 10/11/2023 1101F PT SCR Future Fall Risk, No Fall Or 1 W/Out Injury Completed 10/04/2023 13071 Venipuncture Routine Complet ed 09/26/2023 J3301 Injection Kenalog 10 MG [facility] [id number] Completed 09/26/2023 J1100 Injection Dexamethasone Sodi um Phosphate, 1 MG Completed 09/26/2023 44792 Inj Subcutaneous Or Intramus cular Completed 03/20/2014 [id number] Colonoscopy Completed Medical Devices Description No Information [...] M54.50 Low back pain, unspecified A lexander Sully, DPT 12/22/2023 M25.551 Pain in right hip Gavin Sully, DPT 12/22/2023 M54.50 Low back pain, unspecified A lexander Sully, DPT 12/20/2023 M25.551 Pain in right hip Gavin Talamantesn, DPT 12/20/2023 M54.50 Low back pain, unspecified A lexander Sully, DPT 12/14/2023 Z00.01 Encounter for [facility] adult medical examination with abnormal findings Casey Jasso PA-C 12/14/2023 I10 Essential (primary) hyperten adam Casey Jasso PA-C 12/14/2023 E78.2 Mixed hyperlipidemia Casey Jasso PA-C 12/14/2023 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, right hip Casey Jasso PA-C 12/14/2023 R73.01 Impaired fasting glucose Vipul Jasso PA-C 12/13/2023 M25.551 Pain in right hip Gavin Sully, DPT 12/13/2023 M54.50 Low back pain, unspecified A lexander Sully, DPT 12/06/2023 M25.551 Pain in right hip Gavin Sully, DPT 12/06/2023 M54.50 Low back pain, unspecified A lexander Sully, DPT 11/29/2023 M25.551 Pain in right hip Gavin Sully, DPT 11/29/2023 M54.50 Low back pain, unspecified A lexander Sully, DPT 11/24/2023 M25.551 Pain in right hip Gavin Sully, DPT 11/24/2023 M54.50 Low back pain, unspecified A lexander Sully, DPT 11/22/2023 M25.551 Pain in right hip Gavin Sully, DPT 11/22/2023 M54.50 Low back pain, unspecified A lexander Sully, DPT 11/14/2023 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, right hip Casey Jasso PA-C 11/14/2023 M70.61 Trochanteric bursitis, right hip Casey Jasso PA-C 10/11/2023 Z00.01 Encounter for [facility] adult medical examination with abnormal findings [...] I10 Essential (primary) hyperten adam [facility] - [facility] 10/04/2023 E78.2 Mixed hyperlipidemia Shirley Arthur MD 10/04/2023 E78.2 Mixed hyperlipidemia Lab - [place] 10/04/2023 R73.01 Impaired fasting glucose Zack Arthur MD 10/04/2023 R73.01 Impaired fasting glucose Lab - [facility] 10/04/2023 N40.1 Benign prostatic hyperplasia with lower urinary tract symptoms Shirley Arthur MD 10/04/2023 N40.1 Benign prostatic hyperplasia with lower urinary tract symptoms Lab - [facility] 09/26/2023 J20.9 Acute bronchitis, unspecifie d Casey Jasso PA-C Plan of Treatment Future Appointment(s):* 04/10/2024 8:00 am - [facility] * 04/17/2024 9:00 am - Casey Jasso PA-C at [facility] 03/20/2024 - Casey Jasso PA-C* K52.839 Microscopic colitis, unspecified* Comments:* Complete Cipro Consider imaging if or stool sample if symptoms persist [place] diet * E86.0 Dehydration* Comments:* Increase fluid [...] Declined Gavin Arnett, DPT Created 000 [address] [facility] [place] [id number] [phone]
--- OUTSIDE RECORDS SUMMARY | 2024-04-13 06:20 | External Medical Summary | Continuity of Care Document ---
Author Name Unknown Organization [place] Address [address] [place] [address] Phone [phone] Care Team Providers Care Provider Relations Representative Name Role Phone Cardiology - Cardiovascular Disease Care Team In formation Car Chaser Unavailable Problems Active Problems Provider Date Morbid [...] Onset: 9 Note: Document: 10/09/18 - e [facility] Discharge Summary Sprain of medial collateral [...] SIG Qnty Indications Order ing Provider Date Lqmfi766cm Tablets 1 by mouth twice a day x 7 days 14tabs Shirley Arthur MD 03/20/2024 - 03/27/2024 Ondansetron HCL4mg Tablets take 1 tablet by mouth every 6 hours as needed for nausea 30tabs Shirley Arthur MD 03/20/2024 Tramadol YYG26os Tablets 1 by mouth three times a day as needed pain 60tabs Shirley Arthur MD 11/25/2023 Montelukast Seikcn85kx Tablets take 1 tablet by mouth every night 90tabs Shirley Arthur MD 02/03/2023 Tamsulosin HCL0.4mg Capsules 1 by mouth every day 90caps Shirley Arthur MD 08/12/2022 Jmdnqfxmjyx160ly Capsules take 1 capsule 4 times daily as needed for cough 60caps Shirley Arthur MD 10/20/2021 Cetirizine WET71vi Tablets 1 by mouth every day as needed 90tabs Shirley Arthur MD 10/09/[address] Take 1 Tablet Twice A Day as Needed For Joint Pain 180tabs M15.9 Shirley Arthur MD 10/09/2020 Ivbjtgoemjzjxjqxmrk90.5mg Tablets Take 1 Tablet Daily 90tabs I10 Shirley Arthur MD 10/22/2019 Losartan Uhgygreer675bm Tablets Take 1 Tablet Daily 90tabs I10 Shirley Arthur MD 10/22/2019 Vitamin C W/Vitamin [id number]-Kafx Capsules 1 by mouth every day Kt Arrieta JR, MD 07/10/2019 Terazosin VML73fg Capsules once daily N40.1 Kt Arrieta JR, MD 02/08/2019 Ywswsmcwe46tc Tablets take 1 tablet every day with food 90tabs M17.0 Alex Macedo MD 11/07/2018 Fish Oil Cyzakguudza1373dn Capsules 1 by mouth every day 30caps John Cunningham MD 06/10/2017 Atorvastatin Kmcjyok68fr Tablets Take 1 Tablet Daily 90tabs Shirley Arthur MD Centrum MultigummiesChewtabs John Cunningham MD Fiber Select GummiesChewtabs 1 gummies daily with glass of water John Cunningham MD Luis Daniel Low Qapk13lx Tablets DR 1 by mouth every day John Cunningham MD History Medications Ktehtvijjh60ai Tablets Take Two Tablets By Mouth For 5 Days Then Take One Tablet By Mouth For 5 Days 15tabs Shirley Arthur MD 11/14/2023 - 03/20/2024 Medications Administered in Office Medication SIG Qnty Indications Ordering Provider Date Injection Kenalog 10 MG NDC [id number] Johnie Velazquez A-C 11/14/2023 Injection Kenalog 10 MG NDC [id number] Johnie Velazquez A-C 09/26/2023 Injection Dexamethasone Sodium Phosphate, 1 MGInjection Casey Jasso, PA-C 09/12 Injection Dexamethasone Sodium Phosphate, 1 MGInjection Casey D. Lazorka, PA-C 01/2023 Injection Dexamethasone Sodium Phosphate, 1 MGInjection Casey D. Lazorka, PA-C 03/2023 Injection Kenalog 10 MG ND [id number] Casey D. Lazjaia, P A-C 02/03/2023 Injection [...] Lazorka, PA-C 04/2022 Injection Kenalog 10 MG [facility] [id number] Casey Becky. Lazjaia, P A-C 05/14/2021 Immunizations CPT Code Status Date Vaccine Lot # [id number] Given 06/09/2023 Influenza Vaccine High Do se 0.5ML Age 65 & > [id number] 56086 Given 06/09/2023 Tdap (Tetanus, diphtheria & acel. pertussis) Adacel or Boostrix [id number] Given 08/24/2022 Moderna Sars-Co v-2 (Covid-19) Vaccine, BiValent Booster [id number]+ [id number] 34065 Given 01/05/2022 Moderna Covid-1 9 Vaccine 50mcg Booster-EMR Doc Only [id number] Given 08/25/2021 Influenza Vaccine High Do se 0.5ML Age 65 & > 24505 Given 07/14/2021 Moderna Covid-1 9 Vaccine 50mcg Booster-EMR Doc Only [id number] 65838 Given 11/14/2020 Moderna Sars-Co v-2 (Cov-19) vacc,100 mcg/ 0.5 mL 12Y+EMR Doc Only [id number] 92811 Given 10/17/2020 Moderna Sars-Co v-2 (Cov-19) vacc,100 mcg/ 0.5 mL 12Y+EMR Doc Only [id number] 67000 Given 06/09/2020 Influenza Vaccine High Do se 0.5ML Age 65 & > [id number] 16826 Given 10/08/2019 Pneumococcal Vaccine/Pneu movax 23 [id number] 64567 Given 06/20/2018 Influenza Virus Vaccine, Quadrivalent (Cciiv4), Derived From Cell U-FLU Given 06/20/2018 Influenza,Unspecified 88825 Given 04/03/2018 Pneumococcal Conjugate-Pr evnar 13 [id number] 90473 Given 09/03/2015 Pneumococcal Conjugate-Pr evnar 13 90389 Given 08/06/2015 Tdap (Tetanus, diphtheria & acel. pertussis) Adacel or Boostrix U-FLU Given 06/10/2015 Influenza,Unspecified U-FLU Given 05/30/2014 Influenza,Unspecified U-FLU Given 08/22/2010 Influenza,Unspecified 23124 Refused 05/24/2022 Shingrix [id number] Refused 06/09/2020 Shingrix [id number] Refused 10/08/2019 Influenza Virus Vaccine, Quadrivalent, Im Use [id number] Refused 11/07/2018 Shingrix Vital Signs Date Vital [...] kg/m2 O2 % BldC Oximetry 95 % [place] Body Weight 154 lb Results Test Acquired Date Facility Test Result H/L Range N ote CBC W/Diff 10/04/2023 [facility] [address] [place], [place] [id number] [phone] WBC 7.8 10^3/M3 3.1-9.2 RBC 4.26 10^6/M3 4.00-5.80 HGB 13.8 GR/DL 12.5-17.5 HCT 41.2 % 37.5-52.5 MCV 96.5 CUMICR High 82.6-95.8 MCH 32.4 PICOGR 27.9-32.9 MCHC 33.6 % 32.6-35.4 RDW 14.5 % 11.4-14.6 PLT 224 10^3/M3 140-350 MPV 8.4 CUMICR 7.0-10.6 %Neut 72.3 % 40.0-75.0 %Lymph 18.7 % 17.0-45.0 %[place] 6.6 % 1.0-11.0 %Eos 1.9 % 0.0-6.0 %[place] 0.5 % 0.0-2.0 #Neut 5.6 10^3/M3 1.5-8.0 #Lymph 1.5 10^3/M3 0.8-3.2 #[place] 0.5 10^3/M3 0.0-0.8 #Eos 0.1 10^3/m3 0.0-0.4 #Bas[place] 0.0 10^3/m3 0.0-0.2 Comp. Met 10/04/2023 [facility] [address] [place] [address] [phone] Glucose 92 mg/dL 70-110 BUN 15 mg/dL [...] 2.0-3.4 GFR 99 ML/MIN/1.73SQM >60 Lipid 10/04/2023 [facility] [address] [place] [address] [phone] Cholesterol 176 mg/dL 0-200 1 Triglyceride 102 mg/dL 0-150 2 HDLD 63 mg/dL See Comment 3 Measured LDL 99 mg/dL 0-130 4 Calc VLDL 20.4 mg/dL See Comment 5 Chol/HDL 2.8 RATIO See Comment 6 Non-HDL 113 mg/dL See Comment 7 Laboratory test finding 10/04/2023 [facility] [address] [place] [address] [phone] TSH 1.38 uIU/mL 0.50-6.00 Hba1c 10/04/2023 [facility] [address] [place] [address] [phone] A1c 6.70 % High 4.70-6.50 8 Laboratory test finding 10/04/2023 [facility] [address] [place], [place] [id number] [phone] Psa2 0.8 ng/mL 0.0-4.0 Urinalysis,Cult If Indicated 10/04/2023 [facility] [address] [place], [place] [id number] [phone] RFLX Culture NO Urinalysis 10/04/2023 [facility] [address] [place] [address] [phone] Color LIGHT-YELL OW Appearance CLEAR Clear Spec.Grav. [...] 240-10 Procedures Date Code Description Status 12/27/2023 27413 Manual Mold Shifter 1/> Area 15 Min Each Region Completed 12/27/2023 89473 Therapeutic Procedure Group Completed 12/27/2023 67261 Therapy Proc 1/> Area 15Min Ea Completed 12/27/2023 82631 Therapy Proc, Neuromuscular Reeducation Of Movement Completed 12/22/2023 10606 Manual Mold Shifter 1/> Area 15 Min Each Region Completed 12/22/2023 98873 Therapy Proc, Neuromuscular Reeducation Of Movement Completed 12/22/2023 43049 Therapy Proc 1/> Area 15Min Ea Completed 12/20/2023 19825 Therapeutic Procedure Group Completed 12/20/2023 09152 Manual Mold Shifter 1/> Area 15 Min Each Region Completed 12/20/2023 94981 Therapy Proc, Neuromuscular Reeducation Of Movement Completed 12/20/2023 13823 Therapy Proc 1/> Area 15Min Ea Completed 12/14/2023 3078F PVRP Diastolic BP <80 mmHg C ompleted 12/14/2023 1101F PT SCR Future Fall Risk, No Fall Or 1 W/Out Injury Completed 12/14/2023 3074F PVRP Systolic BP <130 mmHg C ompleted 12/13/2023 91574 Therapeutic Procedure Group Completed 12/13/2023 84609 Manual Mold Shifter 1/> Area 15 Min Each Region Completed 12/13/2023 54947 Therapy Proc, Neuromuscular Reeducation Of Movement Completed 12/13/2023 95007 Therapy Proc 1/> Area 15Min Ea Completed 12/06/2023 02014 Therapy Proc 1/> Area 15Min Ea Completed 12/06/2023 67942 Therapy Proc, Neuromuscular Reeducation Of Movement Completed 12/06/2023 56986 Therapeutic Procedure Group Completed 12/06/2023 00535 Manual Mold Shifter 1/> Area 15 Min Each Region Completed 11/29/2023 28223 Manual Mold Shifter 1/> Area 15 Min Each Region Completed 11/29/2023 32222 Therapy Proc, Neuromuscular Reeducation Of Movement Completed 11/29/2023 28661 Therapy Proc 1/> Area 15Min Ea Completed 11/24/2023 79118 Manual Mold Shifter 1/> Area 15 Min Each Region Completed 11/24/2023 46599 Therapy Proc, Neuromuscular Reeducation Of Movement Completed 11/24/2023 18631 Therapy Proc 1/> Area 15Min Ea Completed 11/22/2023 19922 Therapy Proc 1/> Area 15Min Ea Completed 11/22/2023 26520 Manual Mold Shifter 1/> Area 15 Min Each Region Completed 11/22/2023 04174 Physical Therapy Evaluation Low Complexity Completed 11/14/2023 J3301 Injection Kenalog 10 MG [facility] [id number] Completed 11/14/2023 53935 Inject/Drain Arthrocentesis Major Joint/Bursa Completed 10/11/2023 3078F PVRP Diastolic BP <80 mmHg C ompleted 10/11/2023 3074F PVRP Systolic BP <130 mmHg C ompleted 10/11/2023 1101F PT SCR Future Fall Risk, No Fall Or 1 W/Out Injury Completed 10/04/2023 50645 Venipuncture Routine Complet ed 09/26/2023 J3301 Injection Kenalog 10 MG [facility] 10370835714 Completed 09/26/2023 J1100 Injection Dexamethasone Sodi um Phosphate, 1 MG Completed 09/26/2023 64250 Inj Subcutaneous Or Intramus cular Completed 03/20/2014 11250547 Colonoscopy Completed Medical Devices Description No Information [...] M54.50 Low back pain, unspecified A lexander [place], DPT 12/22/2023 M25.551 Pain in right hip Gavin [place], DPT 12/22/2023 M54.50 Low back pain, unspecified A lexander [place], DPT 12/20/2023 M25.551 Pain in right hip Gavin Talamantesn, DPT 12/20/2023 M54.50 Low back pain, unspecified A lexander [place], DPT 12/14/2023 Z00.01 Encounter for [facility] adult medical examination with abnormal findings Casey Jasso PA-C 12/14/2023 I10 Essential (primary) hyperten adam Casey Jasso PA-C 12/14/2023 E78.2 Mixed hyperlipidemia Casey Jasso PA-C 12/14/2023 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, right hip Casey Jasso PA-C 12/14/2023 R73.01 Impaired fasting glucose Vipul Jasso PA-C 12/13/2023 M25.551 Pain in right hip Gavin [place], DPT 12/13/2023 M54.50 Low back pain, unspecified A lexander [place], DPT 12/06/2023 M25.551 Pain in right hip Gavin [place], DPT 12/06/2023 M54.50 Low back pain, unspecified A lexander [place], DPT 11/29/2023 M25.551 Pain in right hip Gavin [place], DPT 11/29/2023 M54.50 Low back pain, unspecified A lexander [place], DPT 11/24/2023 M25.551 Pain in right hip Gavin [place], DPT 11/24/2023 M54.50 Low back pain, unspecified A lexander [place], DPT 11/22/2023 M25.551 Pain in right hip Gavin [place], DPT 11/22/2023 M54.50 Low back pain, unspecified A lexander [place], DPT 11/14/2023 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, right hip Casey Jasso PA-C 11/14/2023 M70.61 Trochanteric bursitis, right hip Casey Jasso PA-C 10/11/2023 Z00.01 Encounter for [facility] adult medical examination with abnormal findings Casey [...] I10 Essential (primary) hyperten adam Lab - [place] 10/04/2023 E78.2 Mixed hyperlipidemia Shirley Arthur MD 10/04/2023 E78.2 Mixed hyperlipidemia Lab - [place] 10/04/2023 R73.01 Impaired fasting glucose Zack Arthur MD 10/04/2023 R73.01 Impaired fasting glucose Lab - [place] 10/04/2023 N40.1 Benign prostatic hyperplasia with lower urinary tract symptoms Shirley Arthur MD 10/04/2023 N40.1 Benign prostatic hyperplasia with lower urinary tract symptoms Lab - [place] 09/26/2023 J20.9 Acute bronchitis, unspecifie d Casey Jasso PA-C Plan of Treatment Future Appointment(s):* 04/10/2024 8:00 am - [facility] [place] [facility] [place] * 04/17/2024 9:00 am - Casey Jasos PA-C at [place] 03/20/2024 - Casey Jasso PA-C* K52.839 Microscopic colitis, unspecified* Comments:* Complete Cipro Consider imaging if or stool sample if symptoms persist [place] diet * E86.0 Dehydration* Comments:* Increase fluid [...] Declined Gavin Arnett, DPT Created [id number] [facility] [place] [address] [phone]
[2024-04-13] MEDS ORDERED: MIDAZOLAM HCL 1 MG/ML 2ML VIAL ONE ×2 (06:30→07:26)
[2024-04-13] MEDS ORDERED: fentaNYL citrate PF 100 MCG/2 ML VIAL ONE (06:30)
[2024-04-13] MEDS ORDERED: ATROPINE SULFATE 0.1 MG/ML 10ML SYR IV PRN (06:31)
[2024-04-13] MEDS ORDERED: ePHEDrine sulfate 50 MG/ML AMP IV PRN (06:31)
[2024-04-13] MEDS ORDERED: fentaNYL citrate PF 100 MCG/2 ML VIAL IV PRN (06:31)
[2024-04-13] MEDS ORDERED: ONDANSETRON INJ 2 MG/ML 2 ML VIAL IV PRN ×2 (06:31→10:33)
[2024-04-13] MEDS ORDERED: LIDOCAINE 2% 2 ML VIAL/AMP(20MG/ML) INFIL ONE (06:33)
[2024-04-13] MEDS ORDERED: PROPOFOL IV EMULSION 10 MG/ML 20 ML VIAL IV ONE ×2 (06:33)
--- NOTE | 2024-04-13 06:36 | History & Physical Bridge Note ---
Date of Service April 13, 2024 History & Physical Bridge Note I have examined the patient, reviewed the History & Physical and in the interval since the performance of the History & Physical I have noted the following changes of clinical significance: no changes noted
[2024-04-13] MEDS: TRANEXAMIC ACID 1,000 MG **IV Pre-op IV SCH (06:46)
[2024-04-13] MEDS: ceFAZolin 2000MG 2,000 MG/15 ML SYR IV SCH ×2 (06:58→15:10)
[2024-04-13] MEDS ORDERED: ePHEDrine sulfate 50 MG/5 ML SYR ONE (07:24)
[2024-04-13] MEDS ORDERED: DexMEDEtomidine HCL IV 100 MCG/ML VIAL IV ONE (07:28)
[2024-04-13] MEDS: ORTHO JOINT ANESTHETIC ONE (07:36)
[2024-04-13] MEDS: ROPIV 0.5% 246mg, Ketorolac 30mg, EPINEPHrine 0.5mg in NSS INFIL SCH (08:02)
[2024-04-13] MEDS: TRANEXAMIC ACID 1,000 MG **IV Intra-op IV SCH (08:04)
--- NOTE | 2024-04-13 08:04 | Operative Report ---
PG Post Operative Report Pre & Post Diagnosis Operation Date: 04/13/24 07:00 Pre-Op Diagnosis: Arthritis of right hip Post-Op Diagnosis: Arthritis of right hip I identified the patient and participated in the time-out.: Yes Procedure Operation Date: 04/13/24 07:00 Actual Procedures p Right Anterior Total Hip Arthroplasty(Right) - Erik Garcia DO Surgeon Erik Garcia DO Assistant Financial Accountant Erik Lo PA-C Estimated Blood Loss 200 Findings Consistent with Post-Op Diagnosis Specimens Right femoral head Description of Procedure Implants used I used a ZimmerBiomet total hip arthroplasty system with a size 5 high offset Avenir Complete stem, a 52 mm G7 cup with a 25mm screw, an E1 polyethylene liner, a 36 mm ceramic head with a 0 neck. Seven arrived at the hospital for the above procedure. He was seen in the preoperative holding area and the operative extremity was identified and signed. He was given a spinal anesthetic, a preoperative antibiotic, and TXA. He was then taken back to the operating room and laid on the table in the supine position. He was given basic sedation. The operative leg was secured to a Puristst leg positioner. The hip was then prepped and draped in sterile fashion. A timeout was done and the patient and the operative extremity was properly identified. An anterior approach was used. Dissection was taken down through the fascia and the tensor muscle belly was retracted laterally and the rectus was retracted medially. The circumflex vessels were identified and ligated. The capsule was then incised and tagged for later repair. The femoral neck was then cut and the femoral head was removed. The acetabulum was exposed. Time was spent doing a complete circumferential labral release. Sequential reaming of the acetabulum up to a size 51 reamer was done. Final reamings were done under fluoroscopy to ensure appropriate version. A Biomet 52 mm G7 cup was then impacted into place. A single 25 mm screw was placed. The E1 polyethylene liner was then snapped into place. Surrounding soft tissues were then injected with 100 cc of an orthopedic pain control cocktail. The proximal femur was then exposed. Sequential broaching up to a size 5 broach was done. Off that broach a size 36 head with a 0 neck was trialed. The hip was reduced and fluoroscopic images showed anatomic alignment of the implants in acceptable length. The broach was removed. The final size 5 high offset Avenir Complete stem was then impacted into place. A ceramic 36 mm head with a 0 neck was then impacted onto the stem and the hip was reduced. Final fluoroscopic images showed anatomic alignment of the hip. The capsule was then closed with #1 Vicryl suture. A dilute betadyne lavage was then done for 3 minutes. The joint was then irrigated with normal saline solution. The fascia was closed with #1 PDS suture. Skin was closed with 2-0 Vicryl, barbi, and a Silverlon dressing. He was then transferred to a hospital bed and taken to the post anesthesia care unit in stable condition. He tolerated the procedure well. Erik Lo PA-C, was present for the entire procedure. He was critical for patient positioning, prepping, draping, retraction exposure, wound closure and application of sterile dressing. I attest to the content of the Intraoperative Record and any orders documented therein. Any exceptions are noted below.
--- NOTE | 2024-04-13 09:02 | Fluoroscopy Report ---
FL hip RT 1V CLINICAL HISTORY: RIGHT ANTERIOR KAREEM TECHNIQUE: 1 views were obtained with the C-arm in the OR with the above procedure. Total fluoroscopy time was 23.8 seconds. Radiation dose was 2.74 mGy. Comparison: Comparison is made to right hip aspiration 12/28/2023 FINDINGS/IMPRESSION: Intraoperative images were obtained of of anterior total hip arthroplasty. Please correlate with intraoperative fluoroscopy and operative report. ACT 112: Negative or not required by law. Electronically signed by: Obi Jarrett M.D. 04/13/2024 9:01 AM
--- NOTE | 2024-04-13 09:50 | XRay Report ---
XR hip 1V RT w pelvis HISTORY: 78 years-old Male IN PACU - Post Surgical right hip arthroplasty COMPARISON: Fluoroscopic images of the right hip same day TECHNIQUE: AP view of the pelvis with cross table lateral view of the right hip FINDINGS: Mild osteoarthritis of the left hip. Arterial calcifications. Satisfactory alignment of the right hip arthroplasty. Lateral skin barbi with expected postoperative soft tissue swelling and deep tissue air. IMPRESSION: Satisfactory alignment of the right hip arthroplasty. ACT 112: Negative or not required by law. The above report was generated using voice recognition software. It may contain grammatical, syntax o r spelling errors. Electronically signed by: Michael Li M.D. 04/13/2024 9:49 AM
--- NOTE | 2024-04-13 10:05 | Anesthesiology Progress Note ---
Date of Service April 13, 2024 Anesthesia Post Procedure Vital Signs Vital Signs: Temp Pulse Resp BP Pulse Ox O2 Del Method O2 Flow Rate 04/13/24 09:50 71 18 120/66 96 Nasal Cannula 2 04/13/24 09:35 58 L 16 125/62 95 Nasal Cannula 2 04/13/24 09:25 62 14 116/59 L 96 Nasal Cannula 2 04/13/24 09:15 57 L 18 125/58 L 97 Nasal Cannula 2 04/13/24 09:05 36.5 C 59 L 16 129/57 L 95 Room Air 04/13/24 08:55 66 18 127/56 L 96 Oxymask 4 04/13/24 08:45 59 L 16 107/54 L 99 Oxymask 4 04/13/24 08:35 64 14 109/74 98 Oxymask 6 04/13/24 08:25 36.7 C 67 16 93/43 L 95 Oxymask 6 04/13/24 05:27 36.5 C 54 L 20 171/89 H 97 Room Air Pain Intensity Right Hip: Pain Intensity: 4 Notes Mental Status: alert / awake / arousable Patient Amnestic to Procedure: Yes Nausea / Vomiting: adequately controlled Pain: adequately controlled Airway Patency, RR, SpO2: stable & adequate BP & HR: stable & adequate Hydration State: stable & adequate Neuraxial Anesthesia: was administered and sensory block is resolving Anesthetic Complications: no major complications apparent
[2024-04-13] MEDS ORDERED: NALOXONE HCL 0.4 MG/1 ML VIAL/CARP IV PRN (10:33)
[2024-04-13] MEDS ORDERED: METOCLOPRAMIDE HCL INJ 5 MG/ML 2 ML VIAL IV PRN (10:33)
[2024-04-13] MEDS ORDERED: bisacodyL 10 MG SUPP PR PRN (10:33)
[2024-04-13] MEDS ORDERED: oxyCODONE HCL IR 5 MG TAB (IMMEDIATE RELEASE) PO PRN (10:33)
[2024-04-13] MEDS ORDERED: MAGNESIUM HYDROXIDE SUSP 30 ML UDC PO PRN (10:33)
[2024-04-13] MEDS ORDERED: HYDROmorphone INJ 0.5 MG/0.5 ML SYR IV PRN (10:33)
[2024-04-13] MEDS: ASPIRIN 81 MG ECTAB PO SCH (11:43)
[2024-04-13] MEDS: DOCUSATE SODIUM 100 MG CAP PO SCH (11:44)
[2024-04-13] MEDS: hydroCHLOROthiazide 25 MG TAB PO SCH (11:44)
[2024-04-13] MEDS: KETOROLAC TROMETHAMINE 15 MG/ML VIAL IV SCH (11:45)
[2024-04-13] MEDS: MULTIVITAMIN TAB PO SCH (11:46)
[2024-04-13] MEDS: LOSARTAN POTASSIUM 50 MG TAB PO SCH (11:46)
[2024-04-13] MEDS: TAMSULOSIN HCL 0.4 MG CAP PO SCH (11:47)
[2024-04-13] MEDS: SODIUM CHLORIDE 0.9% 1,000 ML IV SCH (11:47)
[2024-04-13] MEDS: SENNA 8.6 MG TAB PO SCH (19:36)
[2024-04-13] MEDS: ATORVASTATIN 10 MG TAB PO SCH (19:37)
[2024-04-13] MEDS: MONTELUKAST SODIUM 10 MG TABLET PO SCH (19:37)
[2024-04-14] MEDS: dexAMETHasone 4 MG TAB PO SCH (08:15)
--- NOTE | 2024-04-14 08:30 | Orthopedic Progress Note ---
Date of Service April 14, 2024 Assessment & Plan (1) Status post right hip replacement: Overall he is doing very well. He is not having much pain in the right hip. He will be seen by physical therapy today for ambulation and range of motion exercises. He is on aspirin for DVT prophylaxis. He can be discharged home later today. He will follow-up orthopedics in 2 weeks. Santhosh Aemzcua was seen and examined at bedside this morning. Overall he is doing very well. Is not having much pain in the right hip. He has been up and ambulating to the bathroom. He has no complaints.. Review of Systems All systems reviewed & are unremarkable except as noted in HPI & below. Physical Exam On physical examination of the right hip, the dressing is clean and dry. His leg is out full extension. He has active dorsiflexion and plantarflexion of his right ankle.. Results & Data Results & Data Laboratory Results . Diagnostic Findings Postoperative x-rays of the right hip show the prosthesis to be in anatomic alignment without any evidence of fracture, his cage, or loosening.. PG Care Time/CCT Total # of Minutes Spent Total Time Spent with Patient: Total time spent is greater than 50% in coordination of care (as documented) at patient's floor/unit and/or counseling patient: Coding Level of Care Code 03611 Post Operative Follow-Up Diagnoses Status post right hip replacement Z96.641
--- NOTE | 2024-04-14 08:31 | Discharge Summary ---
Date of Service April 14, 2024 Admission HPI (Per Admitting) Seven is a pleasant 78-year-old male who has been dealing with chronic increasing right hip and groin pain. He is seeing another provider. X-rays and clinical examination have been diagnostic for advanced arthritis of the right hip. He has trouble getting in and out of a car. He has trouble walking long distances. After failed conservative treatment, he has elected proceed with a right anterior total of arthroplasty. Admission Exam (Per Admitting) On physical examination the right hip, he has decreased range of motion. He has pain with forced internal/external rotation. Most of his pain is located in the groin.. Principal Diagnosis Same as "Discharge Diagnosis" noted below under Discharge Instructions. Discharge Exam On physical examination of the right hip, the dressing is clean and dry. His leg is out full extension. He has active dorsiflexion and plantarflexion of his right ankle.. Discharge Data Procedures Performed Operation Date: 04/13/24 07:00 Actual Procedures p Right Anterior Total Hip Arthroplasty(Right) - Erik Garcia DO Ordered Studies 04/13/24 07:00 FL hip RT 1V Routine Hospital Course (1) Status post right hip replacement: On April 13, 2024 Cris arrived at [facility] and underwent a right hip replacement without complication. He had a spinal anesthetic. Postoperatively he was started on aspirin for DVT prophylaxis and transferred to the general orthopedic floors. His hospital course was uneventful. On postop day #1, his vital signs were stable and his pain was well-controlled. He was able to participate well with physical therapy doing ambulation and range of motion exercises. He was then discharged to home. He will follow with orthopedics in 2 weeks. PG Care Time/CCT Total # of Minutes Spent Total Time Spent with Patient: Total time spent is greater than 50% in coordination of care (as documented) at patient's floor/unit and/or counseling patient: Discharge Plan Discharge Items Patient Disposition: Home - Self-Care Reason For Visit: Right Hip Degenerative Joint Disease Discharge Diagnosis: Right hip replacement Activity: Per Instructions section Non-emergency contact: Surgeon Call non-emergency contact if: your wound has increased redness and your wound has increased drainage Follow-up/Referrals: Casey Jasso, [facility] [Primary Care Provider] - Diet: Regular Addtl Attending Provider Instructions: Activity and Therapy Recommendations: * If you are using [facility] then therapy will be provided at your home until they feel you have accomplished all of your goals. * If you are using [facility] then Physical Therapy will be provided until they feel you are ready to start Outpatient Physical Therapy. * If you are not using home therapy then Outpatient Physical Therapy should start about 3-5 days from your day of surgery. Therapy will last about 6-10 weeks * You were shown a series of exercises in the hospital. Do these exercises three times each day including the exercises you were shown in physical therapy. * Get up and walk several times each day.~ For the first four weeks, try not to stand or walk for more than one hour at a time. If you do stand or walk for more than one hour, you will not hurt anything, but your leg will likely swell.~~ * As you feel comfortable, you may change from the walker or crutches to a cane and~then to independent walking. Medications: * Narcotic You will likely be sent home from the hospital with a prescription for the narcotic pain medication that worked best throughout your stay. * Cefadroxil -take the antibiotic twice a day for 10 days to help prevent infection. * Aspirin Most patients will be required to take Aspirin 81mg twice a day for 6 weeks after surgery. This is obtained [id number] and a prescription is not necessary. * Other medications may be prescribed for specific circumstances. If you have any questions, please call the office at . * Resume previous home medications unless otherwise instructed TEDs/Elastic Stockings: The white elastic stockings help limit swelling and prevent blood clots from forming in your legs. The more you wear them, the more they work. Wear them for six weeks. Dressing Care: Leave the Silverlon dressing in place for 7 days. After 7 days you may remove the dressing. If the incision is not draining then you may leave the barbi open to air. If there is a little bit of drainage or if the barbi are getting stuck on your clothing then cover the incision with a dry dressing. The barbi will be removed at your 2 week follow-up appointment. Showering: You may shower with the Silverlon dressing in place. Do not let the shower spray hit the dressing directly. Pat the Silverlon dressing dry. If the dressing becomes wet underneath, then simply remove the dressing. Keep the incision dry until you are 7 days out from the day of surgery. After 7 days you may remove the Silverlon dressing and shower with the barbi exposed. Let soapy water run over the barbi and pat them dry. Do not scrub or soak the incision. Things To Watch For: * Drainage from the incision site that occurs more than one week after your surgery. * Increased redness at the incision site. * Fever above 102 degrees Fahrenheit. * Unusual chest pain or shortness of breath. * Call [facility] at with any of the above problems Follow-Up Visit: Follow-up with Dr. Garcia's PA (Erik Lo) 2-3 weeks after your day of surgery. He will remove your barbi and answer any questions. If you have any additional questions or concerns, Dr Garcia is usually in the office at the same time and will be available An appointment was probably scheduled when you signed-up for surgery in the office. If you have any questions call Office Instructions: More detailed instructions as well as Frequently Asked Questions were provided in a folder by our office when you signed-up for surgery. Please review these instructions when you get home. If you have any further questions or concerns, please feel free to call the office at [phone] Pending Studies at Discharge: No Stand-Alone Forms: [facility], Smoking Cessation Medications and DC Order Prescriptions: New oxycodone 5 mg Tablet 5 mg PO Q4H PRN (Reason: pain) Qty: 30 0RF cefadroxil 500 mg capsule 500 mg PO BID 10 Days Qty: 20 0RF Continued atorvastatin 10 mg Tablet 10 mg PO HS tamsulosin 0.4 mg Capsule 0.4 mg PO QAM diclofenac sodium 75 mg Tablet,Delayed Release (Dr/Ec) 75 mg PO BID montelukast 10 mg Tablet 10 mg PO PM losartan 100 mg Tablet 100 mg PO QAM hydrochlorothiazide 12.5 mg Tablet 12.5 mg PO QAM Centrum Adult 50 Plus 80 mcg Tablet,Chewable 1 tab PO QAM Changed aspirin 81 mg Tablet,Delayed Release (Dr/Ec) 81 mg PO BID 42 Days Qty: 0 0RF Discharge Orders: Discharge Order (Routine); Ordered 04/14/24 Ordered By: Erik Garcia Admission Data Admit Date/Time: 04/13/24 08:32 Attending Provider: Erik Garcia Admit Provider: Erik Garcia Primary Care Provider: Casey Jasso
== END 2024-04-14 11:20 | disposition home or self-care (01) ==
LOC: 3E 05:06 → ASU 05:06